=== PATIENT | male | born 1990 | race Caucasian/White ===

== ENCOUNTER 2017-11-22 13:05 | Emergency (ER) | payer BC ==
[2017-11-22 13:25] VITALS: BP 126/67; PULSE 108; RESP 18; TEMP 98.6
[2017-11-22] MEDS ORDERED: ACETAMINOPHEN TAB 500 MG TAB PO STA (14:05)
[2017-11-22] MEDS ORDERED: IBUPROFEN 800 MG TAB PO STA (14:05)
--- NOTE | 2017-11-22 14:56 | XR ---
EXAMINATION TYPE: XR elbow complete RT DATE OF EXAM: 11/22/2017 CLINICAL HISTORY: Pain per order. Redness and swelling after waking up today. TECHNIQUE: Frontal, lateral and oblique images of the right elbow are obtained. COMPARISON: None FINDINGS: There is no acute fracture/dislocation evident in the right elbow. No abnormal fat pad si gns are seen. The overlying soft tissue appears unremarkable. IMPRESSION: Unremarkable study.
[2017-11-22] MEDS ORDERED: predniSONE 20 MG TAB PO STA (15:12)
[2017-11-22] MEDS ORDERED: SULFAMETHOX-TMP 800-160MG 1 EACH TAB PO STA (15:12)
--- NOTE | 2017-11-22 15:12 | ED ---
General Adult HPI - General Chief complaint: Extremity Problem,Nontraumatic Stated complaint: elbow/arm swelling Time Seen by Provider: 11/22/17 13:52 Source: patient, RN notes reviewed, old records reviewed Mode of arrival: ambulatory Limitations: no limitations - History of Present Illness Initial comments: This is a 18-year-old male the ER for evasive severe right arm pain right elbow swelling. Patient woke with the symptoms today. Patient is no medical history takes no medications no history of diabetes or immunocompromise. Patient denies any recent injuries. He states his right elbow just feels painful and swollen. 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 - Related Data Previous Rx's Medication Instructions Recorded Cephalexin [Keflex] 500 mg PO Q6HR #40 cap 11/22/17 Naproxen [Naprosyn] 500 mg PO Q12HR PRN #30 tab 11/22/17 Sulfamethox-Tmp 800-160Mg [Bactrim 2 tab PO BID #40 tab 11/22/17 DS 800-160 mg] Allergies Allergy/AdvReac Type Severity Reaction Status Date / Time Penicillins Allergy Unknown Verified 11/22/17 13:47 Review of Systems ROS Statement: Those systems with pertinent positive or pertinent negative responses have been documented in the HPI. ROS Other: All systems not noted in ROS Statement are negative. Past Medical History Past Medical History: No Reported History Additional Past Medical History / Comment(s): IV DRUG USE History of Any Multi-Drug Resistant Organisms: None Reported Past Surgical History: No Surgical Hx Reported Past Psychological History: No Psychological Hx Reported Smoking Status: Current every day smoker Past Alcohol Use History: Occasional Past Drug Use History: None Reported, Heroin General Exam - General Exam Comments Initial Comments: Right elbow is significantly swollen, versus swollen and boggy, patient does have full range of motion of elbow both passively and actively Limitations: no limitations General appearance: alert, in no apparent distress Head exam: Present: atraumatic, normocephalic, normal inspection Eye exam: Present: normal appearance, PERRL, EOMI. Absent: scleral icterus, conjunctival injection, periorbital swelling ENT exam: Present: normal exam, mucous membranes moist Neck exam: Present: normal inspection. Absent: tenderness, meningismus, lymphadenopathy Respiratory exam: Present: normal lung sounds bilaterally. Absent: respiratory distress, wheezes, rales, rhonchi, stridor Cardiovascular Exam: Present: regular rate, normal rhythm, normal heart sounds. Absent: systolic murmur, diastolic murmur, rubs, gallop, clicks GI/Abdominal exam: Present: soft, normal bowel sounds. Absent: distended, tenderness, guarding, rebound, rigid Extremities exam: Present: normal inspection, full ROM, normal capillary refill. Absent: tenderness, pedal edema, joint swelling, calf tenderness Back exam: Present: normal inspection Neurological exam: Present: alert, oriented X3, CN II-XII intact Psychiatric exam: Present: normal affect, normal mood Skin exam: Present: warm, dry, intact, normal color. Absent: rash Course Vital Signs 11/22/17 13:22 Temperature 98.6 F Pulse Rate 108 H Respiratory 18 Rate Blood Pressure 126/67 O2 Sat by Pulse 97 Oximetry - Reevaluation(s) Reevaluation #1: Patient encouraged to return to ER if fever develops, Medical Decision Making - Medical Decision Making 18 male the ER for evaluation of likely right elbow bursitis, x-ray negative for fracture, patient to return if symptoms worsen, at this time prescribed antibiotics anti-inflammatories - Radiology Data Radiology results: report reviewed (X-ray right elbow is negative for acute disease), image reviewed Disposition Clinical Impression: Bursitis of right elbow, Cellulitis Disposition: HOME SELF-CARE Condition: Good Instructions: Cellulitis (ED), Elbow Bursitis (ED) Prescriptions: Cephalexin [Keflex] 500 mg PO Q6HR #40 cap Naproxen [Naprosyn] 500 mg PO Q12HR PRN #30 tab PRN Reason: Pain Sulfamethox-Tmp 800-160Mg [Bactrim DS 800-160 mg] 2 tab PO BID #40 tab Is patient prescribed a controlled substance at d/c from ED?: No Referrals: None,Stated [Primary Care Provider] - 1-2 days
[2017-11-22] MEDS ORDERED: CEPHALEXIN 500 MG CAP PO STA (15:13)
== END 2017-11-22 15:31 | disposition home or self-care (01) ==
LOC: EC 13:05
DX: M70.31 Other bursitis of elbow, right elbow (principal); L03.113 Cellulitis of right upper limb; F17.200 Nicotine dependence, unspecified, uncomplicated; Z88.0 Allergy status to penicillin
CPT/HCPCS: 73080; 99284; J7512

== ENCOUNTER 2017-12-09 10:43 | Inpatient (IN) | payer BC, OTHER ==
[2017-12-09] MEDS ORDERED: MORPHINE SULFATE 4 MG/ML SYRINGE IV STA (11:21)
[2017-12-09] MEDS ORDERED: SODIUM CHLORIDE 0.9% 500 ML IV STA (11:21)
[2017-12-09] MEDS ORDERED: PANTOPRAZOLE 40 MG/10 ML VIAL IVP STA (11:21)
--- NOTE | 2017-12-09 11:37 | ED ---
General Adult HPI - General Chief complaint: Abdominal Pain Stated complaint: Abd Pain Source: patient, EMS Mode of arrival: EMS - History of Present Illness Initial comments: Dictation was produced using Neteven dictation software. please excuse any grammatical, word or spelling errors. Chief Complaint: 26-year-old male with past medical history of IV drug abuse, recent bursitis surgery on antibiotics presents with epigastric abdominal pain since 3 AM. History of Present Illness: Patient states he was asleep when at approximately 3 AM he was awoken by epigastric abdominal pain. Denies any vomiting however has had episodes of nausea. Patient states the pain is severe he denies any radiation to the back. Denies any diarrhea. No changes in urine characteristics. Patient states the pain is severe and gnawing. No exacerbating or mitigating factors. EMS was called patient was given 100 g of fentanyl and transported to the emergency department. The ROS documented in this emergency department record has been reviewed and confirmed by me. Those systems with pertinent positive or negative responses have been documented in the HPI. All other systems are other negative and/or noncontributory. - Related Data Previous Rx's Medication Instructions Recorded Naproxen [Naprosyn] 500 mg PO Q12HR PRN #30 tab 11/22/17 Allergies Allergy/AdvReac Type Severity Reaction Status Date / Time Penicillins Allergy Unknown Verified 12/09/17 12:19 Review of Systems ROS Statement: Those systems with pertinent positive or pertinent negative responses have been documented in the HPI. ROS Other: All systems not noted in ROS Statement are negative. Past Medical History Past Medical History: No Reported History Additional Past Medical History / Comment(s): IV DRUG USE History of Any Multi-Drug Resistant Organisms: None Reported Past Surgical History: No Surgical Hx Reported Past Psychological History: No Psychological Hx Reported Smoking Status: Current every day smoker Past Alcohol Use History: Occasional Past Drug Use History: Heroin General Exam - General Exam Comments Initial Comments: PHYSICAL EXAM: General Impression: Alert and oriented x3, acute distress secondary to abdominal pain HEENT: Normocephalic atraumatic, extra-ocular movements intact, pupils equal and reactive to light bilaterally, mucous membranes moist. Cardiovascular: Heart regular rate and rhythm, S1&S2 audible, no murmurs, rubs or gallops Chest: Lungs clear to auscultation bilaterally, no rhonchi, no wheeze, no rales Abdomen: Diffuse abdominal tenderness Musculoskeletal: Pulses present and equal in all extremities, no peripheral edema Motor: Power 5/5 bilaterally, no focal deficits noted Neurological: CN II-XII grossly intact, no focal motor or sensory deficits noted Skin: Multiple skin tracks Psych: Normal affect and mood Course Vital Signs 12/09/17 10:45 Temperature 97.9 F Pulse Rate 108 H Respiratory 16 Rate Blood Pressure 128/72 O2 Sat by Pulse 99 Oximetry Medical Decision Making - Medical Decision Making ED course: 26-year-old male presents with severe abdominal pain since 3 AM today. Vital signs upon arrival shows heart rate of 108, rest of vital signs within acceptable limits. Laboratory evaluation obtained would leukocytosis 21.6. Rest of CBC within acceptable limits. Metabolic panel shows lipase of 741. Mild hyperglycemia 112. Urinalysis is negative. Rapid urine drug screen positive for barbiturates. Chest x-ray obtained showing no thoracic findings however there is no pneumoperitoneum. Discussed patient case with Dr. Jhaveri from general surgery. Request the patient be started on antibiotics. She had multiple doses of IV analgesics. Patient to be boarded for surgery or exploratory laparotomy EKG Interpretation: A 12 lead EKG was obtained. It was interpreted by myself and attending physician. There is a P wave before every QRS complex. Rate is [default value]. Rhythm is [default value]. QT is not prolonged. No ST segment depression or elevation. This EKG was compared to a previous EKG that was obtained on [ default value] and showed no significant change. Overall, this EKG is unremarkable - Lab Data Result diagrams: 12/09/17 11:45 12/09/17 11:45 Lab Results 12/09/17 12/09/17 12/09/17 Range/Units 11:45 11:45 11:45 WBC 21.6 H (3.8-10.6) k/uL RBC 4.05 L (4.30-5.90) m/uL Hgb 13.3 (13.0-17.5) gm/dL Hct 40.7 (39.0-53.0) % MCV 100.4 H (80.0-100.0) fL MCH 32.8 (25.0-35.0) pg MCHC 32.7 (31.0-37.0) g/dL RDW 13.2 (11.5-15.5) % Plt Count 625 H (150-450) k/uL Neutrophils % 95 % Lymphocytes % 1 % Monocytes % 3 % Eosinophils % 1 % Basophils % 0 % Neutrophils # 20.5 H (1.3-7.7) k/uL Lymphocytes # 0.3 L (1.0-4.8) k/uL Monocytes # 0.7 (0-1.0) k/uL Eosinophils # 0.1 (0-0.7) k/uL Basophils # 0.0 (0-0.2) k/uL PT 10.5 (9.0-12.0) sec INR 1.1 (<1.2) Sodium 138 (137-145) mmol/L Potassium 4.5 (3.5-5.1) mmol/L Chloride 104 (98-107) mmol/L Carbon Dioxide 20 L (22-30) mmol/L Anion Gap 14 mmol/L BUN 7 L (9-20) mg/dL Creatinine 0.65 L (0.66-1.25) mg/dL Est GFR (CKD-EPI)AfAm >90 (>60 ml/min/1.73 sqM) Est GFR (CKD-EPI)NonAf >90 (>60 ml/min/1.73 sqM) Glucose 112 H (74-99) mg/dL Calcium 8.8 (8.4-10.2) mg/dL Total Bilirubin 1.1 (0.2-1.3) mg/dL AST 58 (17-59) U/L ALT 54 (21-72) U/L Alkaline Phosphatase 88 (38-126) U/L Total Protein 6.4 (6.3-8.2) g/dL Albumin 3.7 (3.5-5.0) g/dL Amylase 132 H (30-110) U/L Lipase 741 H (23-300) U/L Urine Color Urine Appearance (Clear) Urine pH (5.0-8.0) Ur Specific [place] (1.001-1.035) Urine Protein (Negative) Urine Glucose (UA) (Negative) Urine Ketones (Negative) Urine Blood (Negative) Urine Nitrite (Negative) Urine Bilirubin (Negative) Urine Urobilinogen (<2.0) mg/dL Ur Leukocyte Esterase (Negative) Urine RBC (0-5) /hpf Urine WBC (0-5) /hpf Ur Squamous Epith Cells (0-4) /hpf Urine Bacteria (None) /hpf Hyaline Casts (0-2) /lpf Urine Mucus (None) /hpf Urine Opiates Screen (NotDetected) Ur Oxycodone Screen (NotDetected) Urine Methadone Screen (NotDetected) Ur Propoxyphene Screen (NotDetected) Ur Barbiturates Screen (NotDetected) U Tricyclic Antidepress (NotDetected) Ur Phencyclidine Scrn (NotDetected) Ur Amphetamines Screen (NotDetected) U Methamphetamines Scrn (NotDetected) U Benzodiazepines Scrn (NotDetected) Urine Cocaine Screen (NotDetected) U Marijuana (THC) Screen (NotDetected) Serum Alcohol 148 mg/dL 12/09/17 12/09/17 Range/Units 11:45 11:54 WBC (3.8-10.6) k/uL RBC (4.30-5.90) m/uL Hgb (13.0-17.5) gm/dL Hct (39.0-53.0) % MCV (80.0-100.0) fL MCH (25.0-35.0) pg MCHC (31.0-37.0) g/dL RDW (11.5-15.5) % Plt Count (150-450) k/uL Neutrophils % % Lymphocytes % % Monocytes % % Eosinophils % % Basophils % % Neutrophils # (1.3-7.7) k/uL Lymphocytes # (1.0-4.8) k/uL Monocytes # (0-1.0) k/uL Eosinophils # (0-0.7) k/uL Basophils # (0-0.2) k/uL PT (9.0-12.0) sec INR (<1.2) Sodium (137-145) mmol/L Potassium (3.5-5.1) mmol/L Chloride (98-107) mmol/L Carbon Dioxide (22-30) mmol/L Anion Gap mmol/L BUN (9-20) mg/dL Creatinine (0.66-1.25) mg/dL Est GFR (CKD-EPI)AfAm (>60 ml/min/1.73 sqM) Est GFR (CKD-EPI)NonAf (>60 ml/min/1.73 sqM) Glucose (74-99) mg/dL Calcium (8.4-10.2) mg/dL Total Bilirubin (0.2-1.3) mg/dL AST (17-59) U/L ALT (21-72) U/L Alkaline Phosphatase (38-126) U/L Total Protein (6.3-8.2) g/dL Albumin (3.5-5.0) g/dL Amylase (30-110) U/L Lipase (23-300) U/L Urine Color [place] Urine Appearance Cloudy (Clear) Urine pH 8.5 H (5.0-8.0) Ur Specific [place] 1.024 (1.001-1.035) Urine Protein 3+ H (Negative) Urine Glucose (UA) Negative (Negative) Urine Ketones Trace H (Negative) Urine Blood Negative (Negative) Urine Nitrite Negative (Negative) Urine Bilirubin Negative (Negative) Urine Urobilinogen 2.0 (<2.0) mg/dL Ur Leukocyte Esterase Negative (Negative) Urine RBC 1 (0-5) /hpf Urine WBC 2 (0-5) /hpf Ur Squamous Epith Cells <1 (0-4) /hpf Urine Bacteria Rare H (None) /hpf Hyaline Casts 3 H (0-2) /lpf Urine Mucus Many H (None) /hpf Urine Opiates Screen Not Detected (NotDetected) Ur Oxycodone Screen Not Detected (NotDetected) Urine Methadone Screen Not Detected (NotDetected) Ur Propoxyphene Screen Not Detected (NotDetected) Ur Barbiturates Screen Detected H (NotDetected) U Tricyclic Antidepress Not Detected (NotDetected) Ur Phencyclidine Scrn Not Detected (NotDetected) Ur Amphetamines Screen Not Detected (NotDetected) U Methamphetamines Scrn Not Detected (NotDetected) U Benzodiazepines Scrn Not Detected (NotDetected) Urine Cocaine Screen Not Detected (NotDetected) U Marijuana (THC) Screen Not Detected (NotDetected) Serum Alcohol mg/dL Disposition Clinical Impression: Pneumoperitoneum Disposition: ADMITTED IP TO THIS HOSP Condition: Fair Referrals: Cristofer Brush MD [Primary Care Provider] - 1-2 days Time of Disposition: 13:13
--- NOTE | 2017-12-09 12:20 | XR ---
EXAMINATION TYPE: XR chest 1V DATE OF EXAM: 12/09/2017 COMPARISON: NONE HISTORY: Severe abdominal pain TECHNIQUE: Single frontal view of the chest is obtained. FINDINGS: There is no focal air space opacity, pleural effusion, or pneumothorax seen. The cardiac silhouette size is within normal limits. The osseous structures are intact. Pneumoperitoneum is not ed IMPRESSION: No acute cardiopulmonary process however there is pneumoperitoneum. Findings were commun icated with the ordering ER physician by Dr. Lang at 12:16 PM on 12/09/2017.
[2017-12-09 12:35] LABS: Appearance,Urine Cloudy (Clear); Bacteria,Urine Rare /hpf; Bilirubin,Urine Negative (Negative); Blood,Urine Negative (Negative); Color,Urine Light Orange; Glucose,Urine (UA) Negative (Negative); Hyaline Casts,Urine 3 /lpf (0-2); INR 1.1 (<1.2); Ketones,Urine Trace (Negative); Leukocyte Esterase,Urine Negative (Negative); Mucus,Urine Many /hpf; Nitrite,Urine Negative (Negative); PH, Urine 8.5 (5.0-8.0); Protein,Urine 3+ (Negative); Prothrombin Time 10.5 sec (9.0-12.0); RBC,Urine 1 /hpf (0-5); Specific Gravity,Urine 1.024 (1.001-1.035); Squamous Epithelial Cell,Urine <1 /hpf (0-4); WBC,Urine 2 /hpf (0-5)
[2017-12-09 12:37] LABS: ALT 54 U/L (21-72); AST 58 U/L (17-59); Albumin 3.7 g/dL (3.5-5.0); Alkaline Phosphatase 88 U/L (38-126); Amylase 132 U/L (30-110); Anion Gap 14 mmol/L; Blood Urea Nitrogen 7 mg/dL (9-20); Calcium 8.8 mg/dL (8.4-10.2); Carbon Dioxide 20 mmol/L (22-30); Chloride 104 mmol/L (98-107); Glucose 112 mg/dL (74-99); Lipase 741 U/L (23-300); Potassium 4.5 mmol/L (3.5-5.1); Sodium 138 mmol/L (137-145); Total Bilirubin 1.1 mg/dL (0.2-1.3); Total Protein 6.4 g/dL (6.3-8.2)
[2017-12-09 12:38] LABS: Basophils % (A) 0 %; Eosinophils # (A) 0.1 k/uL (0-0.7); Eosinophils % (A) 1 %; HCT 40.7 % (39.0-53.0); HGB 13.3 gm/dL (13.0-17.5); Lymphocytes # (A) 0.3 k/uL (1.0-4.8); Lymphocytes % (A) 1 %; MCH 32.8 pg (25.0-35.0); MCHC 32.7 g/dL (31.0-37.0); MCV 100.4 fL (80.0-100.0); Mean Platelet Volume 6.2; Monocytes # (A) 0.7 k/uL (0-1.0); Monocytes % (A) 3 %; Neutrophils # (A) 20.5 k/uL (1.3-7.7); Neutrophils % (A) 95 %; Platelet Count 625 k/uL (150-450); RBC 4.05 m/uL (4.30-5.90); RDW 13.2 % (11.5-15.5); WBC 21.6 k/uL (3.8-10.6)
[2017-12-09 12:40] LABS: Alcohol 148 mg/dL
[2017-12-09 12:47] LABS: Amphetamine Screen,Urine Not Detected (NotDetected); Barbiturate Screen,Urine Detected (NotDetected); Benzodiazepines Screen,Urine Not Detected (NotDetected); Cocaine Screen,Urine Not Detected (NotDetected); Methadone Screen, Urine Not Detected (NotDetected); Opiate Screen,Urine Not Detected (NotDetected); Oxycodone Screen, Urine Not Detected (NotDetected); Phencyclidine Screen,Urine Not Detected (NotDetected); Tricyclic Antidepressant,Urine Not Detected (NotDetected); Urn Cannabinoid Scrn Not Detected (NotDetected)
[2017-12-09] MEDS ORDERED: metroNIDAZOLE-NS PMX 500 MG in SALINE 1 100ML.BAG IVPB STA (12:49)
[2017-12-09] MEDS ORDERED: cefTRIAXone IN SWFI 1,000 MG/10 ML SYRINGE IVP STA (12:50)
[2017-12-09] MEDS ORDERED: NALOXONE 0.4 MG/ML 1 ML VIAL IV PRN ×2 (13:08→17:50)
[2017-12-09] MEDS ORDERED: HYDROmorphone 1 MG/ML 1 ML SYRINGE IVP STA (13:10)
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
[2017-12-09 14:57] VITALS: BMI 21.2
[2017-12-09] MEDS ORDERED: LACTATED RINGERS 1,000 ML IV ONE ×2 (15:27→18:58)
--- NOTE | 2017-12-09 15:32 | P.GSHP ---
History of Present Illness H&P Date: 12/09/17 Chief Complaint: Pneumoperitoneum 18-year-old male presents to the hospital today complaining of mid to upper abdominal pain since 3 AM. Pain comes in waves. Some nausea but no vomiting. Pain is gradually increasing. White blood cell count elevated at 20. CAT scan shows pneumoperitoneum. Some thickening of the duodenum appreciated. Patient had elbow surgery for infected bursitis approximately 3 weeks ago. He has been taking heavier doses of NSAIDs than usual. He states he does take NSAIDs every day or so because of the type of work he does. Prior to the elbow surgery he had a few episodes of coffee-ground emesis. No antiacids. No history of known ulcer disease. No bowel related complaints. Denies rectal bleeding. Patient' s alcohol level was elevated as well. - Review of Systems Comment: The patient denies any acute changes in vision or hearing, no dysphagia or odynophagia, no chest pain or shortness of breath, no dysuria or hematuria, no headache, no runny nose, no rectal bleeding or melena, no unexplained weight loss Past Medical History Past Medical History: No Reported History Additional Past Medical History / Comment(s): Recent R elbow bursitis with surgery/antibiotics, past IV heroin abuse but none for 3.5 years. History of Any Multi-Drug Resistant Organisms: None Reported Past Surgical History: No Surgical Hx Reported Additional Past Surgical History / Comment(s): R elbow surgery for bursitis at [facility] 2 weeks ago, deviated septum with surgery. Past Anesthesia/Blood Transfusion Reactions: No Reported Reaction Past Psychological History: No Psychological Hx Reported Additional Psychological History / Comment(s): Pt resides with his girlfriend and their 9 month old son. Pt is independent. 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 Smoking Status: Current every day smoker Past Alcohol Use History: Occasional Additional Past Alcohol Use History / Comment(s): Pt started smoking in 2000 and is a half a pack a day smoker. Past Drug Use History: Heroin Additional Drug Use History / Comment(s): Pt used IV heroin in past but none for 3.5 years. - Past Family History Father Family Medical History: No Reported History Mother Family Medical History: No Reported History Medications and Allergies Home Medications Medication Instructions Recorded Confirmed Type Naproxen [Naprosyn] 500 mg PO Q12HR PRN #30 tab 11/22/17 12/09/17 Rx Allergies Allergy/AdvReac Type Severity Reaction Status Date / Time Penicillins Allergy Unknown Verified 12/09/17 12:19 Surgical - Exam Vital Signs Temp Pulse Resp BP Pulse Ox 97.9 F 108 H 16 128/72 99 12/09/17 10:45 12/09/17 10:45 12/09/17 10:45 12/09/17 10:45 12/09/17 10:45 Physical exam: General: Thin young male in obvious distress related to his abdominal complaints HEENT: Normocephalic, sclerae nonicteric Abdomen: Nondistended, rigid abdomen, diffusely tender Extremities: No edema Neuro: Alert and oriented Results - Labs 12/09/17 11:45 12/09/17 11:45 Abnormal Lab Results - Last 24 Hours (Table) 12/09/17 12/09/17 12/09/17 Range/Units 11:45 11:45 11:45 WBC 21.6 H (3.8-10.6) k/uL RBC 4.05 L (4.30-5.90) m/uL MCV 100.4 H (80.0-100.0) fL Plt Count 625 H (150-450) k/uL Neutrophils # 20.5 H (1.3-7.7) k/uL Lymphocytes # 0.3 L (1.0-4.8) k/uL Carbon Dioxide 20 L (22-30) mmol/L BUN 7 L (9-20) mg/dL Creatinine 0.65 L (0.66-1.25) mg/dL Glucose 112 H (74-99) mg/dL Amylase 132 H (30-110) U/L Lipase 741 H (23-300) U/L Urine pH 8.5 H (5.0-8.0) Urine Protein 3+ H (Negative) Urine Ketones Trace H (Negative) Urine Bacteria Rare H (None) /hpf Hyaline Casts 3 H (0-2) /lpf Urine Mucus Many H (None) /hpf Ur Barbiturates Screen (NotDetected) 12/09/17 Range/Units 11:54 WBC (3.8-10.6) k/uL RBC (4.30-5.90) m/uL MCV (80.0-100.0) fL Plt Count (150-450) k/uL Neutrophils # (1.3-7.7) k/uL Lymphocytes # (1.0-4.8) k/uL Carbon Dioxide (22-30) mmol/L BUN (9-20) mg/dL Creatinine (0.66-1.25) mg/dL Glucose (74-99) mg/dL Amylase (30-110) U/L Lipase (23-300) U/L Urine pH (5.0-8.0) Urine Protein (Negative) Urine Ketones (Negative) Urine Bacteria (None) /hpf Hyaline Casts (0-2) /lpf Urine Mucus (None) /hpf Ur Barbiturates Screen Detected H (NotDetected) Diabetes panel 12/09/17 Range/Units 11:45 Sodium 138 (137-145) mmol/L Potassium 4.5 (3.5-5.1) mmol/L Chloride 104 (98-107) mmol/L Carbon Dioxide 20 L (22-30) mmol/L BUN 7 L (9-20) mg/dL Creatinine 0.65 L (0.66-1.25) mg/dL Glucose 112 H (74-99) mg/dL Calcium 8.8 (8.4-10.2) mg/dL AST 58 (17-59) U/L ALT 54 (21-72) U/L Alkaline Phosphatase 88 (38-126) U/L Total Protein 6.4 (6.3-8.2) g/dL Albumin 3.7 (3.5-5.0) g/dL Calcium panel 12/09/17 Range/Units 11:45 Calcium 8.8 (8.4-10.2) mg/dL Albumin 3.7 (3.5-5.0) g/dL Pituitary panel 12/09/17 Range/Units 11:45 Sodium 138 (137-145) mmol/L Potassium 4.5 (3.5-5.1) mmol/L Chloride 104 (98-107) mmol/L Carbon Dioxide 20 L (22-30) mmol/L BUN 7 L (9-20) mg/dL Creatinine 0.65 L (0.66-1.25) mg/dL Glucose 112 H (74-99) mg/dL Calcium 8.8 (8.4-10.2) mg/dL Adrenal panel 12/09/17 Range/Units 11:45 Sodium 138 (137-145) mmol/L Potassium 4.5 (3.5-5.1) mmol/L Chloride 104 (98-107) mmol/L Carbon Dioxide 20 L (22-30) mmol/L BUN 7 L (9-20) mg/dL Creatinine 0.65 L (0.66-1.25) mg/dL Glucose 112 H (74-99) mg/dL Calcium 8.8 (8.4-10.2) mg/dL Total Bilirubin 1.1 (0.2-1.3) mg/dL AST 58 (17-59) U/L ALT 54 (21-72) U/L Alkaline Phosphatase 88 (38-126) U/L Total Protein 6.4 (6.3-8.2) g/dL Albumin 3.7 (3.5-5.0) g/dL Assessment and Plan (1) Pneumoperitoneum Narrative/Plan: Clinical scenario discussed with the patient and his mother at the bedside. The patient's mother is known to us from her physician at [facility]. Suspect probable perforated ulcer at the etiology. Other etiologies including perforated small bowel and colon were reviewed as well. We'll proceed with exploratory laparotomy with repair of the perforated site. We discussed that this could include bowel resection and/or ostomy. Risks of bleeding, infection , hernia, re-current perforation, abscess, respiratory complications, potential need for reoperation reviewed. They understand and wish to proceed. Current Visit: Yes Status: Acute Code(s): K66.8 - OTHER SPECIFIED DISORDERS OF PERITONEUM SNOMED Code(s): 63525000
[2017-12-09] MEDS ORDERED: DEXAMETHASONE SOD PHOS (MDV) 100 MG/10 ML VIAL IV ONE (15:40)
[2017-12-09] MEDS ORDERED: ONDANSETRON 4 MG/2 ML VIAL IVP ONE (15:41)
[2017-12-09] MEDS ORDERED: GLYCOPYRROLATE 0.2 MG/ML 2 ML VIAL ONE (15:49)
[2017-12-09] MEDS ORDERED: NEOSTIGMINE 1 MG/ML 10 ML VIAL ONE (15:49)
[2017-12-09] MEDS ORDERED: PROPOFOL 10 MG/ML 20 ML VIAL IV ONE (15:49)
[2017-12-09] MEDS ORDERED: SUCCINYLCHOLINE CHLORIDE 100 MG/5 ML SYR IV ONE (15:49)
[2017-12-09] MEDS ORDERED: KETOROLAC 30 MG/ML 1 ML VIAL ONE (15:49)
[2017-12-09] MEDS ORDERED: MIDAZOLAM 2 MG/2 ML VIAL ONE (15:49)
[2017-12-09] MEDS ORDERED: ROCURONIUM BROMIDE 10 MG/ML 10 ML VIAL IV ONE (15:49)
[2017-12-09] MEDS ORDERED: LIDOCAINE 1% INJ 10MG/ML (20 ML MDV) ONE (15:49)
[2017-12-09] MEDS ORDERED: fentaNYL (PF) 50 MCG/ML 2 ML AMP ONE (15:49)
[2017-12-09] MEDS: HYDROmorphone 1 MG/ML 1 ML SYRINGE IVP ONE ×4 (17:45→18:28)
[2017-12-09] MEDS ORDERED: ACETAMINOPHEN IV (For NPO) 1,000 MG in EMPTY BAG 1 BAG IVPB ONE (17:50)
[2017-12-09] MEDS ORDERED: ONDANSETRON 4 MG/2 ML VIAL IVP PRN (17:50)
--- NOTE | 2017-12-09 17:59 | P.OP ---
Date of Procedure: 12/09/17 Procedure(s) Performed: PREOPERATIVE DIAGNOSIS: Pneumoperitoneum POSTOPERATIVE DIAGNOSIS: Perforated duodenal ulcer with peritonitis PROCEDURE: Exploratory laparotomy with primary repair perforated duodenal ulcer with Shankar patch and fibrin glue SURGEON: Shakila EBL: Minimal ANESTHESIA: General COMPLICATIONS: None OPERATIVE PROCEDURE: Patient brought in place and the operating table in the supine position. Patient placed under general anesthesia. Reich catheter and nasogastric tubes were placed. Abdomen was prepped and draped in the usual sterile fashion. An upper midline incision was made using a scalpel. Dissection through the subcutaneous fat and fascia took place using electrocautery. There was a large volume of bilious stained purulent fluid in the abdominal cavity was irrigated and evacuated. Inspection of the stomach was normal. Inspection of the duodenal bulb however revealed a 1-1.5 cm oval- shaped ulceration. The edges of the ulcer itself were viable and nonfriable. The ulcer was closed using interrupted 3-0 GI silk sutures. Once we had adequate closure copious irrigation of the abdominal cavity with a proximally 7 L of saline took place. No further purulence was seen at that time. I then took a portion of omentum and sutured this over the ulcer itself. Between the omentum and the ulcer closure I used Tisseel fibrin glue which was also used on top of the omentum. Following that the nasogastric tube was confirmed to be within the body of the stomach. The fascia was reapproximated using a running double-stranded #1 PDS suture. The skin was closed using toni. 3 separate small wound openings were left for Telfa petra. Sterile dressings and abdominal binder was applied. DISPOSITION: Stable to recovery room
[2017-12-09] MEDS ORDERED: LEVOFLOXACIN 500MG-D5W PMX 500 MG in DEXTROSE/WATER 1 100ML.BAG IVPB SCH (18:00)
[2017-12-09] MEDS: KETOROLAC 30 MG/ML 1 ML VIAL IVP SCH (19:56)
[2017-12-09] MEDS: D5-0.45% NACL WITH KCL 20MEQ/L 1,000 ML IV SCH (19:57)
[2017-12-09] MEDS: HYDROmorphone 1 MG/ML 1 ML SYRINGE IVP PRN (21:24)
[2017-12-09] MEDS: PANTOPRAZOLE 40 MG/10 ML VIAL IVP SCH (22:06)
[2017-12-10] MEDS: HYDROmorphone 1 MG/ML 1 ML SYRINGE IVP PRN ×7 (00:16→19:48)
[2017-12-10] MEDS: HEPARIN SODIUM,PORCINE 5,000 UNIT/ML 1 ML VIAL SQ SCH ×4 (00:16→23:59)
[2017-12-10] MEDS: KETOROLAC 30 MG/ML 1 ML VIAL IVP SCH ×5 (00:17→23:59)
[2017-12-10] MEDS: D5-0.45% NACL WITH KCL 20MEQ/L 1,000 ML IV SCH ×4 (04:49→23:59)
[2017-12-10 07:32] LABS: Basophils % (A) 0 %; Eosinophils # (A) 0.1 k/uL (0-0.7); Eosinophils % (A) 1 %; HCT 34.6 % (39.0-53.0); HGB 11.5 gm/dL (13.0-17.5); Lymphocytes # (A) 0.6 k/uL (1.0-4.8); Lymphocytes % (A) 5 %; MCHC 33.3 g/dL (31.0-37.0); Macrocytosis Slight; Mean Platelet Volume 6.7; Monocytes # (A) 0.2 k/uL (0-1.0); Monocytes % (A) 2 %; Neutrophils # (A) 12.4 k/uL (1.3-7.7); Neutrophils % (A) 92 %; Platelet Count 500 k/uL (150-450); WBC 13.4 k/uL (3.8-10.6)
[2017-12-10 07:44] LABS: Anion Gap 7 mmol/L; Blood Urea Nitrogen 11 mg/dL (9-20); Calcium 8.6 mg/dL (8.4-10.2); Carbon Dioxide 26 mmol/L (22-30); Chloride 101 mmol/L (98-107); Glucose 128 mg/dL (74-99); Potassium 4.4 mmol/L (3.5-5.1); Sodium 134 mmol/L (137-145)
[2017-12-10] MEDS: NICOTINE 14MG/24HR PATCH TRANSDERM SCH (08:54)
[2017-12-10] MEDS: PANTOPRAZOLE 40 MG/10 ML VIAL IVP SCH ×2 (08:55→20:10)
[2017-12-10] MEDS ORDERED: SODIUM CHLORIDE 0.9% 1,000 ML IV ONE (10:28)
--- NOTE | 2017-12-10 10:53 | P.PN ---
<Namita Lopezne M - Last Filed: 12/10/17 10:30> Subjective Progress Note Date: 12/10/17 26-year-old male being seen on rounds this morning sitting up in bed pleasant alert oriented 3 states pain medication effective for pain control nasal gastric tube to suction surgical dressing dry few hypoactive bowel tones surgical tenderness appropriate and not distended patient states belching no stool white count down 13. 4 indwelling Reich catheter in place dark ruchi urine patient states he has not been up out of bed this morning Postop December 09 Exploratory laparotomy with primary repair perforated duodenal ulcer with Shankar patch and fibrin glue. For perforated duodenal ulcer with peritonitis Objective - Vital Signs Vital signs: Vital Signs Temp 97.9 F 12/10/17 07:53 Pulse 69 12/10/17 07:53 Resp 16 12/10/17 07:53 BP 108/63 12/10/17 07:53 Pulse Ox 95 12/10/17 07:53 Intake & Output 12/09/17 12/10/17 12/10/17 18:59 06:59 18:59 Intake Total 1300 1100 Output Total 350 1110 Balance 950 -10 Weight 77.111 kg 77.111 kg Intake: IV 1300 Intake, IV Titration 1100 Amount D5-0.45% NaCl with KCl 1000 20Meq/l 1,000 ml @ 125 mls/hr IV .Q8H [facility] Rx#: [id number] Levofloxacin 500Mg-D5w 100 Pmx 500 mg In Dextrose/ Water 1 100ml.bag @ 100 mls/hr IVPB Q24H [facility] Rx#: [id number] Output: Gastric Drainage 250 Urine 300 860 Estimated Blood Loss 50 Other: Voiding Method Indwelling Catheter Indwelling Catheter # Voids 1 - Exam Physical exam Pleasant 26-year-old sitting up in bed oriented 3 states pain medication effective for pain control Lungs diminished at the bases otherwise adequate air movement on room air no shortness of breath no cough noted on room air sats are 95% Heart S1-S2 audible regular Abdomen surgical tenderness appropriate few hypoactive bowel tones not distended indwelling Reich catheter in place nasogastric tube to suction surgical dressing dry no reports of nausea no vomiting Extremities 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0-8.0) Urine Protein 3+ H (Negative) Urine Ketones Trace H (Negative) Urine Bacteria Rare H (None) /hpf Hyaline Casts 3 H (0-2) /lpf Urine Mucus Many H (None) /hpf Ur Barbiturates Screen (NotDetected) 12/09/17 12/10/17 12/10/17 Range/Units 11:54 06:56 06:56 WBC 13.4 H (3.8-10.6) k/uL RBC 3.40 L (4.30-5.90) m/uL Hgb 11.5 L (13.0-17.5) gm/dL Hct 34.6 L (39.0-53.0) % MCV 102.0 H (80.0-100.0) fL Plt Count 500 H (150-450) k/uL Neutrophils # 12.4 H (1.3-7.7) k/uL Lymphocytes # 0.6 L (1.0-4.8) k/uL Sodium 134 L (137-145) mmol/L Carbon Dioxide (22-30) mmol/L BUN (9-20) mg/dL Creatinine 0.59 L (0.66-1.25) mg/dL Glucose 128 H (74-99) mg/dL Amylase (30-110) U/L Lipase (23-300) U/L Urine pH (5.0-8.0) Urine Protein (Negative) Urine Ketones (Negative) Urine Bacteria (None) /hpf Hyaline Casts (0-2) /lpf Urine Mucus (None) /hpf Ur Barbiturates Screen Detected H (NotDetected) Microbiology - Last 24 Hours (Table) 12/09/17 12:00 Gram Stain - Preliminary Chest Wound Culture - Preliminary 12/09/17 17:00 Anaerobic Culture - Preliminary Peritoneal Fluid Assessment and Plan Assessment: Impression Present on admission acute onset abdominal pain suspect due to Perforated duodenal ulcer with peritonitis Present on admission leukocytosis suspect due to peritonitis History of frequent use of NSAID daily History of a recent right elbow bursitis with surgery on Naprosyn Pneumoperitoneum present on admission Status post December 09 Exploratory laparotomy with primary repair perforated duodenal ulcer with Shankar patch and fibrin glue for perforated duodenal ulcer with peritonitis Active daily use nicotine Plan Continue postop surgical care 1 L fluid bolus as ordered monitor intake and output Pain control IV antibiotic Levaquin as ordered Toradol 30 mg IV every 6 hours monitor response Nicotine patch as ordered reinforce smoking sensation Continue indwelling Reich catheter do not remove unless ordered by surgical surgeon Continue protonic 40 IV twice a day DVT and GI prophylaxis Increase activity as tolerated Defer to medicine to address medical issues Monitor labs The above impression and plan of care have been discussed and directed by signing physician. Saranya Lopez nurse practitioner acting as scribe for signing physician. <Dami Jhaveri - Last Filed: 12/10/17 14:54> Objective - Vital Signs Vital signs: Vital Signs Temp 98.7 F 12/10/17 14:30 Pulse 66 12/10/17 14:30 Resp 16 12/10/17 14:30 BP 110/67 12/10/17 14:30 Pulse Ox 97 12/10/17 14:30 Intake & Output 12/09/17 12/10/17 12/10/17 18:59 06:59 18:59 Intake Total 1300 1100 Output Total 350 1110 Balance 950 -10 Weight 77.111 kg 77.111 kg Intake: IV 1300 Intake, IV Titration 1100 Amount D5-0.45% NaCl with KCl 1000 20Meq/l 1,000 ml @ 125 mls/hr IV .Q8H [facility] Rx#: [id number] Levofloxacin 500Mg-D5w 100 Pmx 500 mg In Dextrose/ Water 1 100ml.bag @ 100 mls/hr IVPB Q24H [facility] Rx#: [id number] Output: Gastric Drainage 250 Urine 300 860 Estimated Blood Loss 50 Other: Voiding Method Indwelling Catheter Indwelling Catheter # Voids 1 - Labs CBC & Chem 7: 12/10/17 06:56 12/10/17 06:56 Labs: Abnormal Lab Results - Last 24 Hours (Table) 12/10/17 12/10/17 Range/Units 06:56 06:56 WBC 13.4 H (3.8-10.6) k/uL RBC 3.40 L (4.30-5.90) m/uL Hgb 11.5 L (13.0-17.5) gm/dL Hct 34.6 L (39.0-53.0) % MCV 102.0 H (80.0-100.0) fL Plt Count 500 H (150-450) k/uL Neutrophils # 12.4 H (1.3-7.7) k/uL Lymphocytes # 0.6 L (1.0-4.8) k/uL Sodium 134 L (137-145) mmol/L Creatinine 0.59 L (0.66-1.25) mg/dL Glucose 128 H (74-99) mg/dL Microbiology - Last 24 Hours (Table) 12/09/17 12:00 Gram Stain - Preliminary Chest Wound Culture - Preliminary 12/09/17 17:00 Anaerobic Culture - Preliminary Peritoneal Fluid Assessment and Plan Assessment: As above. Patient doing better today. He agrees his pain is definitely improved from preop. Despite that he rates his pain as an 8-9 out of 10. White blood cell count 13.4 today. Hemoglobin stable. Is having some itching. Continue analgesics. We will add IV Tylenol and Benadryl. Reevaluate in a.m. Keep nasogastric tube to suction. (1) Pneumoperitoneum Current Visit: Yes Status: Acute Code(s): K66.8 - OTHER SPECIFIED DISORDERS OF PERITONEUM SNOMED Code(s): 01515178
--- NOTE | 2017-12-10 12:28 | P.CONS ---
History of Present Illness - Reason for Consult Consult date: 12/10/17 Medical management - History of Present Illness This is a 26-year-old male patient of Dr. Brush with past medical history of right elbow bursitis with recent admission at [facility] 2 weeks ago for 5 days status post drainage. He believes the bursitis was secondary to using a sledgehammer for 4 hours. He has been taking naproxen 500 mg twice daily. He denies having any heartburn. 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 He denies having any recent street drug use. He does drink alcohol which she states is occasionally but can be up to 15 drinks on the weekend. He is also a tobacco smoker. He states he woke up with abdominal pain that was crippling him and he couldn't get into the car was so severe. He was transported by EMS to [facility] emergency center for evaluation. The pain was severe and radiating to his back. He had no vomiting or nausea. No diarrhea. He was afebrile with a white count of 21.6 and heart rate of 108. His lipase was elevated at 741 and amylase 132. Urine drug screen was positive for barbiturates. Alcohol level was 148. BUN 11 creatinine 0.59, hemoglobin 13.3. Urinalysis negative. Chest x-ray showed no acute findings. CAT scan of the abdomen and pelvis shows probable perforated duodenal ulcer. Free fluid within the pelvis. Dr. Jhaveri performed exploratory laparotomy with primary repair perforated wound ulcer with Shankar patch and fibrin glue. Patient is seen one day postop. He is complaining of significant pain to the abdomen. He has been afebrile, vital signs stable, pulse ox 95% on room air. Reich catheter in place with dark urine return for which she is receiving 1 L of IV fluids. White count is improved today to 13.4. . Review of Systems All systems: negative Constitutional: Denies chills, Denies fever, Denies poor appetite, Denies weight loss Eyes: denies blurred vision, denies pain Ears, nose, mouth and throat: Denies headache, Denies sore throat Cardiovascular: Denies chest pain, Denies shortness of breath Respiratory: Denies cough Gastrointestinal: Reports abdominal pain, Denies diarrhea, Denies nausea, Denies vomiting Genitourinary: Denies dysuria Musculoskeletal: Denies gait dysfunction, Denies myalgias Integumentary: Denies pruritus, Denies rash Neurological: Denies numbness, Denies weakness Psychiatric: Denies anxiety, Denies depression Endocrine: Denies fatigue, Denies weight change Past Medical History Past Medical History: No Reported History Additional Past Medical History / Comment(s): Recent R elbow bursitis with surgery/antibiotics, past IV heroin abuse but none for 3.5 years. History of Any Multi-Drug Resistant Organisms: None Reported Additional Past Surgical History / Comment(s): R elbow surgery for bursitis at [facility] 2 weeks ago, deviated septum with surgery, exploratory laparotomy with primary repair perforated wound ulcer with Shankar patch and fibrin glue. Past Anesthesia/Blood Transfusion Reactions: No Reported Reaction Past Psychological History: No Psychological Hx Reported Additional Psychological History / Comment(s): Pt resides with his girlfriend and their 9 month old son. Pt is independent. 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 He drives. Smoking Status: Current every day smoker Past Alcohol Use History: Occasional Additional Past Alcohol Use History / Comment(s): Pt started smoking in 2000 and is a half a pack a day smoker. Past Drug Use History: Heroin Additional Drug Use History / Comment(s): Pt used IV heroin in past but none for 3.5 years. - Past Family History Father Family Medical History: No Reported History Additional Family Medical History / Comment(s): Father is alive at age 68 with no major medical problems. Mother Family Medical History: No Reported History Additional Family Medical History / Comment(s): Mother is alive in her 60s with no major medical problems. Patient is an only child. Medications and Allergies Home Medications Medication Instructions Recorded Confirmed Type Naproxen [Naprosyn] 500 mg PO Q12HR PRN #30 tab 11/22/17 12/09/17 Rx Allergies Allergy/AdvReac Type Severity Reaction Status Date / Time Penicillins Allergy Unknown Verified 12/09/17 12:19 Physical Exam Vitals: Vital Signs Temp Pulse Pulse Resp BP BP Pulse Ox 12/10/17 07:53 97.9 F 69 16 108/63 95 12/10/17 00:58 17 12/10/17 00:16 98.4 F 77 17 115/70 98 12/09/17 20:55 98.7 F 81 17 118/79 93 L 12/09/17 20:40 79 18 110/69 95 12/09/17 20:25 77 17 117/80 96 12/09/17 20:10 98.3 F 88 18 124/77 95 12/09/17 19:55 92 17 138/72 94 L 12/09/17 19:40 90 18 130/70 95 12/09/17 19:25 88 17 129/75 96 12/09/17 19:10 91 18 128/72 95 12/09/17 18:55 98.6 F 78 17 132/75 97 12/09/17 18:30 82 16 137/65 92 L 12/09/17 18:15 73 16 149/84 99 12/09/17 18:00 75 16 136/70 99 12/09/17 17:45 82 16 142/70 99 12/09/17 17:40 98.6 F 106 H 16 148/82 99 12/09/17 15:27 98.5 F 85 16 166/82 96 12/09/17 15:00 104 H 20 124/84 97 12/09/17 14:22 98.0 F 107 H 124/75 95 12/09/17 10:45 97.9 F 108 H 16 128/72 99 Intake and Output 12/09/17 12/10/17 12/10/17 22:59 06:59 14:59 Intake Total 1525 875 Output Total 640 820 Balance 885 55 Intake: IV 1300 Intake, IV Titration 225 875 Amount D5-0.45% NaCl with KCl 125 875 20Meq/l 1,000 ml @ 125 mls/hr IV .Q8H [facility] Rx#: [id number] Levofloxacin 500Mg-D5w 100 Pmx 500 mg In Dextrose/ Water 1 100ml.bag @ 100 mls/hr IVPB Q24H [facility] Rx#: [id number] Output: Gastric Drainage 50 200 Urine 540 620 Estimated Blood Loss 50 Other: Voiding Method Indwelling Catheter Indwelling Catheter # Voids 1 Gen: This is a 26-year-old male. He is sitting up in bed and appears to be slightly uncomfortable due to pain HEENT: Head is atraumatic, normocephalic. Pupils equal, round. Sclerae is anicteric. NG tube in place. NECK: Supple. No JVD. No lymphadenopathy. No thyromegaly. LUNGS: Clear to auscultation. No wheezes or rhonchi. No intercostal retractions. HEART: Regular rate and rhythm. No murmur. ABDOMEN: Soft. Bowel sounds are hypoactive. No masses. Generalized tenderness. Dressing placed to the midline with no breakthrough bleeding or drainage. Reich catheter draining dark ruchi urine EXTREMITIES: No pedal edema. No calf tenderness. Dorsalis pedis +2 bilaterally. NEUROLOGICAL: Patient is awake, alert and oriented x3. Cranial nerves 2 through 12 are grossly intact. Results CBC & Chem 7: 12/10/17 06:56 12/10/17 06:56 Labs: Abnormal Lab Results - Last 24 Hours (Table) 12/09/17 12/09/17 12/09/17 Range/Units 11:45 11:45 11:45 WBC 21.6 H (3.8-10.6) k/uL RBC 4.05 L (4.30-5.90) m/uL Hgb (13.0-17.5) gm/dL Hct (39.0-53.0) % MCV 100.4 H (80.0-100.0) fL Plt Count 625 H (150-450) k/uL Neutrophils # 20.5 H (1.3-7.7) k/uL Lymphocytes # 0.3 L (1.0-4.8) k/uL Sodium (137-145) mmol/L Carbon Dioxide 20 L (22-30) mmol/L BUN 7 L (9-20) mg/dL Creatinine 0.65 L (0.66-1.25) mg/dL Glucose 112 H (74-99) mg/dL Amylase 132 H (30-110) U/L Lipase 741 H (23-300) U/L Urine pH 8.5 H (5.0-8.0) Urine Protein 3+ H (Negative) Urine Ketones Trace H (Negative) Urine Bacteria Rare H (None) /hpf Hyaline Casts 3 H (0-2) /lpf Urine Mucus Many H (None) /hpf Ur Barbiturates Screen (NotDetected) 12/09/17 12/10/17 12/10/17 Range/Units 11:54 06:56 06:56 WBC 13.4 H (3.8-10.6) k/uL RBC 3.40 L (4.30-5.90) m/uL Hgb 11.5 L (13.0-17.5) gm/dL Hct 34.6 L (39.0-53.0) % MCV 102.0 H (80.0-100.0) fL Plt Count 500 H (150-450) k/uL Neutrophils # 12.4 H (1.3-7.7) k/uL Lymphocytes # 0.6 L (1.0-4.8) k/uL Sodium 134 L (137-145) mmol/L Carbon Dioxide (22-30) mmol/L BUN (9-20) mg/dL Creatinine 0.59 L (0.66-1.25) mg/dL Glucose 128 H (74-99) mg/dL Amylase (30-110) U/L Lipase (23-300) U/L Urine pH (5.0-8.0) Urine Protein (Negative) Urine Ketones (Negative) Urine Bacteria (None) /hpf Hyaline Casts (0-2) /lpf Urine Mucus (None) /hpf Ur Barbiturates Screen Detected H (NotDetected) Microbiology - Last 24 Hours (Table) 12/09/17 12:00 Gram Stain - Preliminary Chest Wound Culture - Preliminary 12/09/17 17:00 Anaerobic Culture - Preliminary Peritoneal Fluid Assessment and Plan Plan: 1. Perforated duodenal ulcer with peritonitis status post repair. Continue Dilaudid and Toradol for pain control, Zofran for nausea. Patient is on IV fluids at 125 mL per hour. 2. Sepsis secondary to perforated ulcer and peritonitis present on admission with leukocytosis and tachycardia. There is a consult in place for Dr. Gunn. Patient is currently on Levaquin and received 1 dose of Flagyl in the ER. 3. Tobacco use and dependence. Continue nicotine patch. 4. Recent surgical intervention for her bursitis of the right elbow, stable. 5. History of heroin use, abstinence for almost 4 years. 6. GI prophylaxis. Protonix. 7. DVT prophylaxis. SCDs and ALVARO hose. Patient will be admitted to the hospital for a minimum of 3 night stay. Discharge plan: Return home Impression and plan of care have been directed as dictated by the signing physician. Genoveva Parker nurse practitioner acting as scribe for signing physician.
[2017-12-10] MEDS: CEFEPIME 2 GM in SODIUM CHLORIDE 0.9% 50 ML IVPB SCH ×2 (14:03→20:10)
[2017-12-10] MEDS: FLUCONAZOLE IN NACL,ISO-OSM 200 MG in SALINE 1 100ML.BAG IVPB SCH (15:53)
[2017-12-10] MEDS: diphenhydrAMINE 50 MG/ML 1 ML VIAL IVP PRN (15:54)
[2017-12-10] MEDS: ACETAMINOPHEN IV (For NPO) 1,000 MG in EMPTY BAG 1 BAG IVPB SCH ×2 (18:21→23:58)
[2017-12-10] MEDS: metroNIDAZOLE-NS PMX 500 MG in SALINE 1 100ML.BAG IVPB SCH ×2 (18:43→23:59)
--- NOTE | 2017-12-10 19:34 | CONS ---
CONSULTATION . REASON FOR CONSULTATION: Perforated bowel and antibiotic recommendation. HISTORY OF PRESENT ILLNESS: The patient is a 26 -year-old male who was recently admitted at the [facility] when the patient did have right elbow olecranon bursitis, status post drainage, culture that was positive for MSSA and for which the patient has finished his oral Keflex therapy. The patient presenting to the [facility] ER yesterday morning with chief complaints of abdominal pain in the epigastric area, sudden onset and woke up around 3 in the morning. The patient's pain described to be burning, almost 10/10, with severity. Did have an episode of nausea but no vomiting. The pain did radiate to the back area. With these symptoms, the patient did present to the hospital by the EMS. The patient was evaluated by the ER physician. The patient did have a CT which would suggest perforated duodenal ulcer with free fluid within the pelvis. I was asked to see the patient for further recommendation regarding antibiotic therapy. The patient subsequently has been taken to the OR. The patient noticed to have a perforated duodenal ulcer with peritonitis. He is status post exploratory laparotomy with primary repair of this perforated ulcer with Shankar patch and fibrin glue. The patient is still having abdominal pain especially positional. Did have the NG in, currently on Levaquin. REVIEW OF SYSTEMS: Constitutional: Positive for weakness, no fever. Eyes: No complaint. ENT no complaint. Respiratory no complaint. Cardiovascular: No complaint. Genitourinary no complaint. GASTROINTESTINAL: As per HPI. Musculoskeletal: No complaint. Integumentary: No complaint. Psychological no complaint. Endocrine no complaint. Neurologic no complaint. PAST MEDICAL HISTORY: Recent right elbow olecranon bursitis, likely MSSA. PAST SURGICAL HISTORY: Right elbow bursectomy. SOCIAL HISTORY: Occasionally drinks. Currently an every day smoker and does admit to IV use. Last time has been about 3-1/2 years ago. FAMILY HISTORY: No pertinent findings noticed. ALLERGIES: TO PENICILLIN has tolerated cephalosporin without any problem. MEDICATIONS: Includes the patient is currently on Levaquin 500 daily, heparin, Dilaudid, Toradol, Narcan, nicotine patch, Zofran and Protonix. EXAMINATION: Blood pressure 108/63 with a pulse of 69, temperature 97.9. He is 95% on room air. General description is a middle aged male up in the chair in no distress. No tachypnea or accessory muscles of respiration use. HEENT: Shows pallor. No scleral icterus. Oral mucosa membranes are dry. No pharyngeal erythema or thrush. Neck trachea central. No thyromegaly. Lungs unlabored breathing. Clear to auscultation anteriorly. No wheeze or crackles. Heart S1, S2. Regular rate and rhythm. ABDOMEN: Soft, mildly tender. No guarding. No rigidity. Extremities: No edema of the feet. Skin examination: No rash or mass palpable. Neurological: Patient awake, alert, oriented times three. Mood and affect normal. LABS: Hemoglobin 11.5, white count 13.4, admission white count 21.6, BUN of 11, creatinine 0.59. UA has been negative. Urine drug screen positive for barbiturates. Abdominal culture currently pending. DIAGNOSTIC IMPRESSION AND PLAN: 1. Patient with secondary peritonitis from a perforated duodenal ulcer status post laparotomy and open repair of the same. The likely organism to cover will be the enteric gram-negative plus-minus Lissett species and less likely anaerobes. The patient who recently did have a right elbow bursitis status post bursectomy. Culture at that time was positive for MSSA and that has completely healed up. 2. The patient does have PENICILLIN ALLERGY that will limit the number of antibiotics that could be safe to use. PLAN: 1. Discontinue Levaquin. 2. Start the patient on cefepime 2 g q12, Flagyl 500 every 8 and Diflucan 200 daily. 3. Depending upon the clinical response as well as cultures, to further adjust medication if needed. Thank you for this consultation. Will follow this patient along with you. MMODL / IJN: [id number] /
[2017-12-11] MEDS: HYDROmorphone 1 MG/ML 1 ML SYRINGE IVP PRN ×8 (00:55→23:51)
[2017-12-11] MEDS: KETOROLAC 30 MG/ML 1 ML VIAL IVP SCH ×2 (06:20→11:54)
[2017-12-11] MEDS: ACETAMINOPHEN IV (For NPO) 1,000 MG in EMPTY BAG 1 BAG IVPB SCH ×2 (06:20→11:53)
[2017-12-11 07:24] LABS: Basophils % (A) 0 %; Eosinophils # (A) 0.1 k/uL (0-0.7); Eosinophils % (A) 1 %; HCT 33.8 % (39.0-53.0); HGB 11.4 gm/dL (13.0-17.5); Lymphocytes # (A) 1.2 k/uL (1.0-4.8); Lymphocytes % (A) 16 %; MCH 33.9 pg (25.0-35.0); MCHC 33.7 g/dL (31.0-37.0); MCV 100.5 fL (80.0-100.0); Mean Platelet Volume 7.3; Monocytes # (A) 0.3 k/uL (0-1.0); Monocytes % (A) 4 %; Neutrophils # (A) 5.8 k/uL (1.3-7.7); Neutrophils % (A) 78 %; Platelet Count 438 k/uL (150-450); RBC 3.36 m/uL (4.30-5.90); RDW 12.6 % (11.5-15.5); WBC 7.5 k/uL (3.8-10.6)
[2017-12-11 07:40] LABS: Anion Gap 6 mmol/L; Blood Urea Nitrogen 8 mg/dL (9-20); Calcium 8.6 mg/dL (8.4-10.2); Carbon Dioxide 29 mmol/L (22-30); Chloride 100 mmol/L (98-107); Glucose 89 mg/dL (74-99); Potassium 3.7 mmol/L (3.5-5.1); Sodium 135 mmol/L (137-145)
[2017-12-11] MEDS: NICOTINE 14MG/24HR PATCH TRANSDERM SCH (07:51)
[2017-12-11] MEDS: metroNIDAZOLE-NS PMX 500 MG in SALINE 1 100ML.BAG IVPB SCH ×3 (07:51→23:51)
[2017-12-11] MEDS: HEPARIN SODIUM,PORCINE 5,000 UNIT/ML 1 ML VIAL SQ SCH ×3 (07:51→23:51)
[2017-12-11] MEDS: PANTOPRAZOLE 40 MG/10 ML VIAL IVP SCH ×2 (07:52→20:35)
[2017-12-11] MEDS: CEFEPIME 2 GM in SODIUM CHLORIDE 0.9% 50 ML IVPB SCH ×2 (08:59→20:35)
[2017-12-11] MEDS: BENZOCAINE SPRAY 1 CAN MUCOUS MEM PRN ×3 (09:49→21:33)
[2017-12-11] MEDS: FLUCONAZOLE IN NACL,ISO-OSM 200 MG in SALINE 1 100ML.BAG IVPB SCH (09:51)
--- NOTE | 2017-12-11 10:37 | P.PN ---
Subjective Progress Note Date: 12/11/17 Principal diagnosis: Perforated duodenal ulcer Patient doing better today. He says his pain is improved. White blood cell count is normal. He is afebrile with stable vital signs. Nasogastric tube is bilious. Objective - Vital Signs Vital signs: Vital Signs Temp 98.9 F 12/11/17 07:35 Pulse 71 12/11/17 07:35 Resp 18 12/11/17 07:35 BP 113/72 12/11/17 07:35 Pulse Ox 96 12/11/17 07:35 Intake & Output 12/10/17 12/11/17 12/11/17 18:59 06:59 18:59 Output Total 900 1520 1200 Balance -900 -1520 -1200 Weight 77.111 kg Output: Gastric Drainage 500 Urine 400 1520 1200 Uretheral (Reich) 400 Other: Voiding Method Indwelling Catheter Urinal # Voids 0 1 2 - Exam Abdomen: Soft, nondistended, incision clean with some drainage wick sites. - Labs CBC & Chem 7: 12/11/17 06:16 12/11/17 06:16 Labs: Abnormal Lab Results - Last 24 Hours (Table) 12/11/17 12/11/17 Range/Units 06:16 06:16 RBC 3.36 L (4.30-5.90) m/uL Hgb 11.4 L (13.0-17.5) gm/dL Hct 33.8 L (39.0-53.0) % MCV 100.5 H (80.0-100.0) fL Sodium 135 L (137-145) mmol/L BUN 8 L (9-20) mg/dL Microbiology - Last 24 Hours (Table) 12/09/17 12:00 Gram Stain - Preliminary Chest Wound Culture - Preliminary Lissett albicans 12/09/17 13:15 Blood Culture - Preliminary Blood No Growth after 24 hours Assessment and Plan (1) Pneumoperitoneum Narrative/Plan: Continue IV antibiotics. Can begin local wound care at wick sites. Keep nasogastric tube to suction. Current Visit: Yes Status: Acute Code(s): K66.8 - OTHER SPECIFIED DISORDERS OF PERITONEUM SNOMED Code(s): 91432000
[2017-12-11] MEDS: BENZOCAINE/MENTHOL LOZENG 1 EACH LOZENGE MUCOUS MEM PRN ×5 (11:02→23:52)
[2017-12-11] MEDS: D5-0.45% NACL WITH KCL 20MEQ/L 1,000 ML IV SCH ×2 (11:02→20:35)
[2017-12-11] MEDS: diphenhydrAMINE 50 MG/ML 1 ML VIAL IVP PRN (14:24)
--- NOTE | 2017-12-11 16:36 | P.PN ---
Subjective Progress Note Date: 12/11/17 This is a 26-year-old male patient of Dr. Brush with past medical history of right elbow bursitis with recent admission at [facility] 2 weeks ago for 5 days status post drainage. He believes the bursitis was secondary to using a sledgehammer for 4 hours. He has been taking naproxen 500 mg twice daily. He denies having any heartburn. 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 He denies having any recent street drug use. He does drink alcohol which she states is occasionally but can be up to 15 drinks on the weekend. He is also a tobacco smoker. He states he woke up with abdominal pain that was crippling him and he couldn't get into the car was so severe. He was transported by EMS to [facility] emergency center for evaluation. The pain was severe and radiating to his back. He had no vomiting or nausea. No diarrhea. He was afebrile with a white count of 21.6 and heart rate of 108. His lipase was elevated at 741 and amylase 132. Urine drug screen was positive for barbiturates. Alcohol level was 148. BUN 11 creatinine 0.59, hemoglobin 13.3. Urinalysis negative. Chest x-ray showed no acute findings. CAT scan of the abdomen and pelvis shows probable perforated duodenal ulcer. Free fluid within the pelvis. Dr. Jhaveri performed exploratory laparotomy with primary repair perforated wound ulcer with Shankar patch and fibrin glue. Patient is seen one day postop. He is complaining of significant pain to the abdomen. He has been afebrile, vital signs stable, pulse ox 95% on room air. Reich catheter in place with dark urine return for which she is receiving 1 L of IV fluids. White count is improved today to 13.4. . 12/11: Patient is laying down in bed he continues to have some sore throat he continues to have an NG tube in place, he denies any abdominal pain, he has no fever or chills, he seems to be tolerating his treatment very well. Objective - Vital Signs Vital signs: Vital Signs Temp 98.9 F 12/11/17 07:35 Pulse 71 12/11/17 07:35 Resp 18 12/11/17 07:35 BP 113/72 12/11/17 07:35 Pulse Ox 96 12/11/17 07:35 Intake & Output 12/10/17 12/11/17 12/11/17 18:59 06:59 18:59 Output Total 900 1520 Balance -900 -1520 Weight 77.111 kg Output: Gastric Drainage 500 Urine 400 1520 Uretheral (Reich) 400 Other: Voiding Method Indwelling Catheter Urinal # Voids 0 1 - Exam Gen: This is a 26-year-old male. He is sitting up in bed and appears to be slightly uncomfortable due to pain HEENT: Head is atraumatic, normocephalic. Pupils equal, round. Sclerae is anicteric. NG tube in place. NECK: Supple. No JVD. No lymphadenopathy. No thyromegaly. LUNGS: Clear to auscultation. No wheezes or rhonchi. No intercostal retractions. HEART: Regular rate and rhythm. No murmur. ABDOMEN: Soft. Bowel sounds are hypoactive. No masses. Generalized tenderness. Dressing placed to the midline with no breakthrough bleeding or drainage. Reich catheter draining dark ruchi urine EXTREMITIES: No pedal edema. No calf tenderness. Dorsalis pedis +2 bilaterally. NEUROLOGICAL: Patient is awake, alert and oriented x3. Cranial nerves 2 through 12 are grossly intact. - Labs CBC & Chem 7: 12/11/17 06:16 12/11/17 06:16 Labs: Abnormal Lab Results - Last 24 Hours (Table) 12/11/17 12/11/17 Range/Units 06:16 06:16 RBC 3.36 L (4.30-5.90) m/uL Hgb 11.4 L (13.0-17.5) gm/dL Hct 33.8 L (39.0-53.0) % MCV 100.5 H (80.0-100.0) fL Sodium 135 L (137-145) mmol/L BUN 8 L (9-20) mg/dL Microbiology - Last 24 Hours (Table) 12/09/17 12:00 Gram Stain - Preliminary Chest Wound Culture - Preliminary Lissett albicans 12/09/17 13:15 Blood Culture - Preliminary Blood No Growth after 24 hours Assessment and Plan Assessment: Assessment and Plan Plan: 1. Perforated duodenal ulcer with peritonitis status post repair. Continue Dilaudid and Toradol for pain control, Zofran for nausea. Patient is on IV fluids at 125 mL per hour, continue current pain management, continue with Hurricaine spray for the sore throat, continue NG tube for now. 2. Sepsis secondary to perforated ulcer and peritonitis present on admission with leukocytosis and tachycardia. There is a consult in place for Dr. Gunn. Patient is currently on Levaquin and received 1 dose of Flagyl in the ER. 3. Tobacco use and dependence. Continue nicotine patch. 4. Recent surgical intervention for her bursitis of the right elbow, stable. 5. History of heroin use, abstinence for almost 4 years. 6. GI prophylaxis. Protonix. 7. DVT prophylaxis. SCDs and ALVARO enciso.
[2017-12-12] MEDS: D5-0.45% NACL WITH KCL 20MEQ/L 1,000 ML IV SCH ×2 (02:57→04:17)
[2017-12-12] MEDS: HYDROmorphone 1 MG/ML 1 ML SYRINGE IVP PRN ×7 (04:17→23:50)
--- NOTE | 2017-12-12 04:53 | PN ---
PROGRESS NOTE DATE OF SERVICE: 12/11/2017. REASON FOR FOLLOWUP: Secondary peritonitis from perforated duodenal ulcer. INTERVAL HISTORY: The patient is afebrile today. He is breathing comfortably. Abdominal pain is currently controlled. Still have NG in. The patient has been passing gas and feeling that he wants to eat. EXAMINATION: Blood pressure is 118/70 with a pulse of 80. Temperature of 98. General description is a young male up in the bed in no distress. HEENT: Shows no pallor or scleral icterus. LUNGS: Unlabored breathing. Clear to auscultation. HEART: S1, S2. Regular rate and rhythm. ABDOMEN: Soft, mildly tender. EXTREMITIES: No edema feet. LABS: The abdominal culture currently showing a yeast. DIAGNOSTIC IMPRESSION AND PLAN: The patient with secondary peritonitis from a perforated ulcer status post operative repair of the same. The patient at this time will continue on cefepime, Flagyl and Diflucan adjusting antibiotics further based on the clinical response and cultures. Continue supportive care. MMODL / IJN: [id number] /
[2017-12-12 06:58] LABS: Basophils % (A) 0 %; Eosinophils # (A) 0.2 k/uL (0-0.7); Eosinophils % (A) 4 %; HCT 37.8 % (39.0-53.0); HGB 12.4 gm/dL (13.0-17.5); Lymphocytes # (A) 0.7 k/uL (1.0-4.8); Lymphocytes % (A) 12 %; MCH 32.5 pg (25.0-35.0); MCHC 32.9 g/dL (31.0-37.0); MCV 98.8 fL (80.0-100.0); Mean Platelet Volume 6.5; Monocytes # (A) 0.3 k/uL (0-1.0); Monocytes % (A) 5 %; Neutrophils # (A) 4.6 k/uL (1.3-7.7); Neutrophils % (A) 78 %; Platelet Count 403 k/uL (150-450); RBC 3.82 m/uL (4.30-5.90); RDW 12.6 % (11.5-15.5); WBC 5.8 k/uL (3.8-10.6)
[2017-12-12 07:07] LABS: Anion Gap 10 mmol/L; Blood Urea Nitrogen 5 mg/dL (9-20); Carbon Dioxide 28 mmol/L (22-30); Chloride 98 mmol/L (98-107); Glucose 103 mg/dL (74-99); Potassium 3.6 mmol/L (3.5-5.1); Sodium 136 mmol/L (137-145)
[2017-12-12] MEDS: metroNIDAZOLE-NS PMX 500 MG in SALINE 1 100ML.BAG IVPB SCH ×3 (07:17→23:51)
[2017-12-12] MEDS: BENZOCAINE/MENTHOL LOZENG 1 EACH LOZENGE MUCOUS MEM PRN (07:25)
--- NOTE | 2017-12-12 08:01 | P.PN ---
<Saranya Lopez M - Last Filed: 12/12/17 07:53> Subjective Progress Note Date: 12/12/17 26-year-old seen this morning. Patient states " not able to tolerate the nasal gastric tube causing irritation" 150 out for the last 8 hours. Patient states he has been up walking in the hallway yesterday. Surgical dressing dry. Pain medication effective for pain control afebrile white count 5.8 down from admitting white count of 21 states passing gas no stool Postop December 09 Exploratory laparotomy with primary repair perforated duodenal ulcer with Shankar patch and fibrin glue. For perforated duodenal ulcer with peritonitis Objective - Vital Signs Vital signs: Vital Signs Temp 98.3 F 12/11/17 20:00 Pulse 63 12/11/17 20:00 Resp 18 12/11/17 20:00 BP 130/71 12/11/17 20:00 Pulse Ox 99 12/11/17 20:00 Intake & Output 12/11/17 12/12/17 12/12/17 18:59 06:59 18:59 Intake Total 1700 Output Total 2425 Balance -2425 1700 Intake: Intake, IV Titration 1700 Amount Cefepime 2 gm In Sodium 50 Chloride 0.9% 50 ml @ 100 mls/hr IVPB Q12HR [facility] Rx #:[id number] D5-0.45% NaCl with KCl 1550 20Meq/l 1,000 ml @ 125 mls/hr IV .Q8H [facility] Rx#: [id number] metroNIDAZOLE-NS PMX 500 100 mg In Saline 1 100ml.bag @ 100 mls/hr IVPB Q8HR [facility] Rx#:[id number] Output: Gastric Drainage 600 Urine 1825 Other: Voiding Method Urinal # Voids 1 3 - Exam Physical exam Pleasant 26-year-old sitting up in bed just received pain medication Lungs adequate air movement on room air no shortness of breath no cough noted on room air sats are 99% Heart S1-S2 audible regular Abdomen surgical tenderness appropriate few hypoactive bowel tones not distended nasogastric tube to suction 150 out for 8 hours surgical dressing dry no reports of nausea no vomiting Extremities Venodyne's on bilateral lower extremities no edema noted - Labs CBC & Chem 7: 12/12/17 06:19 12/12/17 06:19 Labs: Abnormal Lab Results - Last 24 Hours (Table) 12/12/17 12/12/17 Range/Units 06:19 06:19 RBC 3.82 L (4.30-5.90) m/uL Hgb 12.4 L (13.0-17.5) gm/dL Hct 37.8 L (39.0-53.0) % Lymphocytes # 0.7 L (1.0-4.8) k/uL Sodium 136 L (137-145) mmol/L BUN 5 L (9-20) mg/dL Creatinine 0.62 L (0.66-1.25) mg/dL Glucose 103 H (74-99) mg/dL Microbiology - Last 24 Hours (Table) 12/09/17 17:00 Anaerobic Culture - Preliminary Peritoneal Fluid 12/09/17 12:00 Gram Stain - Final Chest Wound Culture - Final Lissett albicans 12/09/17 13:15 Blood Culture - Preliminary Blood No Growth after 48 hours Assessment and Plan Assessment: Impression Present on admission acute onset abdominal pain suspect due to Perforated duodenal ulcer with peritonitis Present on admission leukocytosis suspect due to peritonitis History of frequent use of NSAID daily History of a recent right elbow bursitis with surgery on Naprosyn Pneumoperitoneum present on admission Status post December 09 Exploratory laparotomy with primary repair perforated duodenal ulcer with Shankar patch and fibrin glue for perforated duodenal ulcer with peritonitis Active daily use nicotine Abdominal wound culture yeast noted Plan Local wound care at [facility] as ordered Continue postop surgical care Pain control IV antibiotic Flagyl, Diflucan cefepime as ordered Nicotine patch as ordered reinforce smoking sensation Continue protonix 40 IV twice a day DVT and GI prophylaxis Increase activity as tolerated Defer to medicine to address medical issues The above impression and plan of care have been discussed and directed by signing physician. Saranya Lopez nurse practitioner acting as scribe for signing physician. <Dami Jhaveri - Last Filed: 12/12/17 10:54> Objective - Vital Signs Vital signs: Vital Signs Temp 98.8 F 12/12/17 07:20 Pulse 69 12/12/17 07:20 Resp 16 12/12/17 07:20 BP 115/70 12/12/17 07:20 Pulse Ox 94 L 12/12/17 07:20 Intake & Output 12/11/17 12/12/17 12/12/17 18:59 06:59 18:59 Intake Total 1700 Output Total 2425 Balance -2425 1700 Intake: Intake, IV Titration 1700 Amount Cefepime 2 gm In Sodium 50 Chloride 0.9% 50 ml @ 100 mls/hr IVPB Q12HR [facility] Rx #:[id number] D5-0.45% NaCl with KCl 1550 20Meq/l 1,000 ml @ 125 mls/hr IV .Q8H [facility] Rx#: [id number] metroNIDAZOLE-NS PMX 500 100 mg In Saline 1 100ml.bag @ 100 mls/hr IVPB Q8HR [facility] Rx#:[id number] Output: Gastric Drainage 600 Urine 1825 Other: Voiding Method Urinal # Voids 1 3 - Labs CBC & Chem 7: 12/12/17 06:19 12/12/17 06:19 Labs: Abnormal Lab Results - Last 24 Hours (Table) 12/12/17 12/12/17 Range/Units 06:19 06:19 RBC 3.82 L (4.30-5.90) m/uL Hgb 12.4 L (13.0-17.5) gm/dL Hct 37.8 L (39.0-53.0) % Lymphocytes # 0.7 L (1.0-4.8) k/uL Sodium 136 L (137-145) mmol/L BUN 5 L (9-20) mg/dL Creatinine 0.62 L (0.66-1.25) mg/dL Glucose 103 H (74-99) mg/dL Microbiology - Last 24 Hours (Table) 12/09/17 17:00 Anaerobic Culture - Preliminary Peritoneal Fluid 12/09/17 12:00 Gram Stain - Final Chest Wound Culture - Final Lissett albicans 12/09/17 13:15 Blood Culture - Preliminary Blood No Growth after 48 hours Assessment and Plan Assessment: As above. Patient doing better at this time. NG output is decreased. We'll remove the nasogastric tube at this time. Stay nothing by mouth except for ice chips. Upper GI ordered for tomorrow. Continue antibiotics and antiacid therapy. (1) Pneumoperitoneum Current Visit: Yes Status: Acute Code(s): K66.8 - OTHER SPECIFIED DISORDERS OF PERITONEUM SNOMED Code(s): 78256433
[2017-12-12] MEDS: CEFEPIME 2 GM in SODIUM CHLORIDE 0.9% 50 ML IVPB SCH ×2 (09:42→20:25)
[2017-12-12] MEDS: PANTOPRAZOLE 40 MG/10 ML VIAL IVP SCH ×2 (09:43→20:26)
[2017-12-12] MEDS: HEPARIN SODIUM,PORCINE 5,000 UNIT/ML 1 ML VIAL SQ SCH ×3 (09:43→23:51)
[2017-12-12] MEDS: FLUCONAZOLE IN NACL,ISO-OSM 200 MG in SALINE 1 100ML.BAG IVPB SCH (10:25)
[2017-12-12] MEDS: NICOTINE 14MG/24HR PATCH TRANSDERM SCH (10:49)
--- NOTE | 2017-12-12 14:20 | P.PN ---
Subjective Progress Note Date: 12/12/17 This is a 26-year-old male patient of Dr. Brush with past medical history of right elbow bursitis with recent admission at [facility] 2 weeks ago for 5 days status post drainage. He believes the bursitis was secondary to using a sledgehammer for 4 hours. He has been taking naproxen 500 mg twice daily. He denies having any heartburn. 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 He denies having any recent street drug use. He does drink alcohol which she states is occasionally but can be up to 15 drinks on the weekend. He is also a tobacco smoker. He states he woke up with abdominal pain that was crippling him and he couldn't get into the car was so severe. He was transported by EMS to [facility] emergency center for evaluation. The pain was severe and radiating to his back. He had no vomiting or nausea. No diarrhea. He was afebrile with a white count of 21.6 and heart rate of 108. His lipase was elevated at 741 and amylase 132. Urine drug screen was positive for barbiturates. Alcohol level was 148. BUN 11 creatinine 0.59, hemoglobin 13.3. Urinalysis negative. Chest x-ray showed no acute findings. CAT scan of the abdomen and pelvis shows probable perforated duodenal ulcer. Free fluid within the pelvis. Dr. Jhaveri performed exploratory laparotomy with primary repair perforated wound ulcer with Shankar patch and fibrin glue. Patient is seen one day postop. He is complaining of significant pain to the abdomen. He has been afebrile, vital signs stable, pulse ox 95% on room air. Reich catheter in place with dark urine return for which she is receiving 1 L of IV fluids. White count is improved today to 13.4. . 12/11: Patient is laying down in bed he continues to have some sore throat he continues to have an NG tube in place, he denies any abdominal pain, he has no fever or chills, he seems to be tolerating his treatment very well. 12/12: NG tube was removed, patient is currently on nothing per mouth yet, he denies any chest pain, he is less sore throat, he has no abdominal pain, he is moving around very well, we'll decrease his IV fluid to 75 mL an hour. Objective - Vital Signs Vital signs: Vital Signs Temp 98.8 F 12/12/17 07:20 Pulse 69 12/12/17 07:20 Resp 16 12/12/17 07:20 BP 115/70 12/12/17 07:20 Pulse Ox 94 L 12/12/17 07:20 Intake & Output 12/11/17 12/12/17 12/12/17 18:59 06:59 18:59 Intake Total 1700 Output Total 2425 Balance -2425 1700 Intake: Intake, IV Titration 1700 Amount Cefepime 2 gm In Sodium 50 Chloride 0.9% 50 ml @ 100 mls/hr IVPB Q12HR [facility] Rx #:[id number] D5-0.45% NaCl with KCl 1550 20Meq/l 1,000 ml @ 125 mls/hr IV .Q8H [facility] Rx#: [id number] metroNIDAZOLE-NS PMX 500 100 mg In Saline 1 100ml.bag @ 100 mls/hr IVPB Q8HR [facility] Rx#:[id number] Output: Gastric Drainage 600 Urine 1825 Other: Voiding Method Urinal # Voids 1 3 - Exam Gen: This is a 26-year-old male. He is sitting up in bed and appears to be slightly uncomfortable due to pain HEENT: Head is atraumatic, normocephalic. Pupils equal, round. Sclerae is anicteric. NG tube in place. NECK: Supple. No JVD. No lymphadenopathy. No thyromegaly. LUNGS: Clear to auscultation. No wheezes or rhonchi. No intercostal retractions. HEART: Regular rate and rhythm. No murmur. ABDOMEN: Soft. Bowel sounds are hypoactive. No masses. Generalized tenderness. Dressing placed to the midline with no breakthrough bleeding or drainage. Reich catheter draining dark ruchi urine EXTREMITIES: No pedal edema. No calf tenderness. Dorsalis pedis +2 bilaterally. NEUROLOGICAL: Patient is awake, alert and oriented x3. Cranial nerves 2 through 12 are grossly intact. - Labs CBC & Chem 7: 12/12/17 06:19 12/12/17 06:19 Labs: Abnormal Lab Results - Last 24 Hours (Table) 12/12/17 12/12/17 Range/Units 06:19 06:19 RBC 3.82 L (4.30-5.90) m/uL Hgb 12.4 L (13.0-17.5) gm/dL Hct 37.8 L (39.0-53.0) % Lymphocytes # 0.7 L (1.0-4.8) k/uL Sodium 136 L (137-145) mmol/L BUN 5 L (9-20) mg/dL Creatinine 0.62 L (0.66-1.25) mg/dL Glucose 103 H (74-99) mg/dL Microbiology - Last 24 Hours (Table) 12/09/17 17:00 Anaerobic Culture - Preliminary Peritoneal Fluid 12/09/17 12:00 Gram Stain - Final Chest Wound Culture - Final Lissett albicans 12/09/17 13:15 Blood Culture - Preliminary Blood No Growth after 48 hours Assessment and Plan Assessment: Assessment and Plan Plan: 1. Perforated duodenal ulcer with peritonitis status post repair. Continue Dilaudid and Toradol for pain control, Zofran for nausea. Discontinue IV fluid , NG tube was removed, incentive spirometer, diet is per surgery. 2. Sepsis secondary to perforated ulcer and peritonitis present on admission with leukocytosis and tachycardia. There is a consult in place for Dr. Gunn. Patient is currently on Levaquin and received 1 dose of Flagyl in the ER. 3. Tobacco use and dependence. Continue nicotine patch. 4. Recent surgical intervention for her bursitis of the right elbow, stable. 5. History of heroin use, abstinence for almost 4 years. 6. GI prophylaxis. Protonix. 7. DVT prophylaxis. SCDs and ALVARO enciso.
[2017-12-12] MEDS ORDERED: DEXTROSE 5%-0.45% NACL 1,000 ML IV SCH (14:30)
[2017-12-12] MEDS: SODIUM CHLORIDE 0.9% 1,000 ML IV SCH (15:43)
[2017-12-13] MEDS: HYDROmorphone 1 MG/ML 1 ML SYRINGE IVP PRN ×3 (02:07→08:21)
[2017-12-13] MEDS: SODIUM CHLORIDE 0.9% 1,000 ML IV SCH ×2 (05:17→19:48)
--- NOTE | 2017-12-13 05:54 | PN ---
PROGRESS NOTE DATE OF SERVICE: 12/12/2017 REASON FOR FOLLOWUP: Secondary peritonitis from perforated peptic ulcer disease. INTERVAL HISTORY: The patient is afebrile. He has been breathing comfortably. Denies significant chest pain or any cough. NG has been discontinued. Abdominal pain is currently controlled with pain medication. No nausea, no vomiting. PHYSICAL EXAMINATION: On examination, blood pressure 113/70 with a pulse of 73, temperature 98.1. He is 90% on room air. General description is a middle-aged male up in the bed in no distress. RESPIRATORY SYSTEM: Unlabored breathing, clear to auscultation anteriorly. HEART: S1, S2. Regular rate and rhythm. ABDOMEN: Soft, mildly tender. EXTREMITIES: No edema of the feet. LABS: Hemoglobin is 12.4, white count of 5.8, BUN of 5 creatinine 0.62. Abdominal culture with Lissett albicans. DIAGNOSTIC IMPRESSION AND PLAN: Patient with secondary peritonitis from perforated peptic ulcer disease, status post operative repair of the same. Plan at this time is to given patient cefepime, Diflucan and Flagyl. Hopefully finish therapy with oral antibiotic once his oral intake has improved and if no resistant organism on the culture. Continue with supportive care. MMODL / IJN: [id number] /
[2017-12-13 06:59] LABS: Basophils % (A) 1 %; Eosinophils # (A) 0.2 k/uL (0-0.7); Eosinophils % (A) 4 %; HCT 38.4 % (39.0-53.0); HGB 12.8 gm/dL (13.0-17.5); Lymphocytes % (A) 20 %; MCH 33.3 pg (25.0-35.0); MCHC 33.3 g/dL (31.0-37.0); MCV 100.1 fL (80.0-100.0); Mean Platelet Volume 6.6; Monocytes # (A) 0.4 k/uL (0-1.0); Monocytes % (A) 8 %; Neutrophils # (A) 3.5 k/uL (1.3-7.7); Neutrophils % (A) 66 %; Platelet Count 423 k/uL (150-450); RBC 3.84 m/uL (4.30-5.90); RDW 12.8 % (11.5-15.5); WBC 5.3 k/uL (3.8-10.6)
[2017-12-13 07:13] LABS: Anion Gap 6 mmol/L; Blood Urea Nitrogen 7 mg/dL (9-20); Carbon Dioxide 31 mmol/L (22-30); Chloride 98 mmol/L (98-107); Glucose 96 mg/dL (74-99); Sodium 135 mmol/L (137-145)
[2017-12-13] MEDS: NICOTINE 14MG/24HR PATCH TRANSDERM SCH (08:24)
[2017-12-13] MEDS: PANTOPRAZOLE 40 MG/10 ML VIAL IVP SCH ×2 (08:25→19:49)
[2017-12-13] MEDS: HEPARIN SODIUM,PORCINE 5,000 UNIT/ML 1 ML VIAL SQ SCH ×3 (08:26→23:44)
[2017-12-13] MEDS: metroNIDAZOLE-NS PMX 500 MG in SALINE 1 100ML.BAG IVPB SCH ×3 (10:22→23:46)
--- NOTE | 2017-12-13 10:36 | FL ---
EXAMINATION TYPE: FL UGI DATE OF EXAM: 12/13/2017 COMPARISON: None HISTORY: Duodenal cyst repair TECHNIQUE: A single contrast UGI study is performed. Isovue-370 was utilized. 2.32 minutes of fluoro scopy time was provided. 26 images were performed. FINDINGS: Contrast passes from the distal esophagus through the stomach with no hesitancy. No extrava sation of contrast is evident. Attention was paid to the duodenal track. Some duodenal fold hypertrophy is present within the first and second portions. Contrast passes through without significant hesitancy. Caliber appears normal. N o filling defects are evident. No extravasation of contrast was evident. Additional overhead radiogra phs as well as upright and supine imaging was performed with fluoroscopy with real-time observation. No free air is noted during this examination. Overhead radiographs were obtained which are unremarkable. IMPRESSIONS: 1. Post surgical evaluation of the duodenum is unremarkable without extravasation of contrast. Some m ild duodenitis with fold hypertrophy could be considered.
[2017-12-13] MEDS: CEFEPIME 2 GM in SODIUM CHLORIDE 0.9% 50 ML IVPB SCH ×2 (11:39→21:48)
[2017-12-13] MEDS: HYDROcodone/APAP 7.5-325MG 1 EACH TAB PO PRN ×4 (11:44→23:44)
--- NOTE | 2017-12-13 11:53 | P.PN ---
Subjective Progress Note Date: 12/13/17 Principal diagnosis: Status post oversew perforated ulcer The patient is status post oversew of a perforated ulcer. He is doing well. He had upper GI today which showed no extravasation. His NG has been removed. He is taking some clear liquids now. No nausea or vomiting. Passing some flatus. Objective - Vital Signs Vital signs: Vital Signs Temp 98 F 12/13/17 07:00 Pulse 60 12/13/17 07:00 Resp 12 12/13/17 07:00 BP 118/74 12/13/17 07:00 Pulse Ox 98 12/13/17 07:00 Intake & Output 12/12/17 12/13/17 12/13/17 18:59 06:59 18:59 Intake Total 0 900 30 Balance 0 900 30 Weight 77.111 kg Intake: Intake, IV Titration 900 Amount Cefepime 2 gm In Sodium 50 Chloride 0.9% 50 ml @ 100 mls/hr IVPB Q12HR [facility] Rx #:[id number] Sodium Chloride 0.9% 1, 750 000 ml @ 75 mls/hr IV . [id number] [facility] Rx#:[id number] metroNIDAZOLE-NS PMX 500 100 mg In Saline 1 100ml.bag @ 100 mls/hr IVPB Q8HR [facility] Rx#:[id number] Oral 0 30 Other: # Voids 1 1 - Constitutional General appearance: Present: cooperative, no acute distress - Respiratory Respiratory: bilateral: CTA - Cardiovascular Rhythm: regular - Gastrointestinal General gastrointestinal: Present: normal bowel sounds, soft Localized gastrointestinal: surgical scar: diffuse (Incision is healing without cellulitis) - Labs CBC & Chem 7: 12/13/17 06:19 12/13/17 06:19 Labs: Abnormal Lab Results - Last 24 Hours (Table) 12/13/17 12/13/17 Range/Units 06:19 06:19 RBC 3.84 L (4.30-5.90) m/uL Hgb 12.8 L (13.0-17.5) gm/dL Hct 38.4 L (39.0-53.0) % MCV 100.1 H (80.0-100.0) fL Sodium 135 L (137-145) mmol/L Carbon Dioxide 31 H (22-30) mmol/L BUN 7 L (9-20) mg/dL Microbiology - Last 24 Hours (Table) 12/09/17 13:15 Blood Culture - Preliminary Blood No Growth after 72 hours Assessment and Plan (1) Perforated duodenal ulcer Current Visit: Yes Status: Acute Code(s): K26.5 - CHRONIC OR UNSPECIFIED DUODENAL ULCER WITH PERFORATION SNOMED Code(s): 98290797 (2) Peritonitis Current Visit: Yes Status: Acute Code(s): K65.9 - PERITONITIS, UNSPECIFIED SNOMED Code(s): 38054166 Plan: He's been in started on clear liquid diet. We'll advance him slowly as tolerated. Fully ready for discharge in the next day or 2. Await final antibiotic and antifungal recommendations per infectious disease. Progressing well.
[2017-12-13] MEDS: FLUCONAZOLE IN NACL,ISO-OSM 200 MG in SALINE 1 100ML.BAG IVPB SCH (14:47)
--- NOTE | 2017-12-13 15:10 | P.PN ---
Subjective Progress Note Date: 12/13/17 This is a 26-year-old male patient of Dr. Brush with past medical history of right elbow bursitis with recent admission at [facility] 2 weeks ago for 5 days status post drainage. He believes the bursitis was secondary to using a sledgehammer for 4 hours. He has been taking naproxen 500 mg twice daily. He denies having any heartburn. 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 He denies having any recent street drug use. He does drink alcohol which she states is occasionally but can be up to 15 drinks on the weekend. He is also a tobacco smoker. He states he woke up with abdominal pain that was crippling him and he couldn't get into the car was so severe. He was transported by EMS to [facility] emergency center for evaluation. The pain was severe and radiating to his back. He had no vomiting or nausea. No diarrhea. He was afebrile with a white count of 21.6 and heart rate of 108. His lipase was elevated at 741 and amylase 132. Urine drug screen was positive for barbiturates. Alcohol level was 148. BUN 11 creatinine 0.59, hemoglobin 13.3. Urinalysis negative. Chest x-ray showed no acute findings. CAT scan of the abdomen and pelvis shows probable perforated duodenal ulcer. Free fluid within the pelvis. Dr. Jhaveri performed exploratory laparotomy with primary repair perforated wound ulcer with Shankar patch and fibrin glue. Patient is seen one day postop. He is complaining of significant pain to the abdomen. He has been afebrile, vital signs stable, pulse ox 95% on room air. Reich catheter in place with dark urine return for which she is receiving 1 L of IV fluids. White count is improved today to 13.4. . 12/11: Patient is laying down in bed he continues to have some sore throat he continues to have an NG tube in place, he denies any abdominal pain, he has no fever or chills, he seems to be tolerating his treatment very well. 12/12: NG tube was removed, patient is currently on nothing per mouth yet, he denies any chest pain, he is less sore throat, he has no abdominal pain, he is moving around very well, we'll decrease his IV fluid to 75 mL an hour. 12/13: Patient is tolerating a full liquid diet to be advanced for low fiber. He has been afebrile, white count is normalized. Wound culture was finalized with Lissett. Blood cultures no growth after 72 hours. Upper GI shows postsurgical evaluation of the duodenum is unremarkable without extravasation of contrast. Some mild to 190s with full hypertrophy could be considered. Objective - Vital Signs Vital signs: Vital Signs Temp 98 F 12/13/17 07:00 Pulse 60 12/13/17 07:00 Resp 12 12/13/17 07:00 BP 118/74 12/13/17 07:00 Pulse Ox 98 12/13/17 07:00 Intake & Output 12/12/17 12/13/17 12/13/17 18:59 06:59 18:59 Intake Total 0 900 30 Balance 0 900 30 Weight 77.111 kg Intake: Intake, IV Titration 900 Amount Cefepime 2 gm In Sodium 50 Chloride 0.9% 50 ml @ 100 mls/hr IVPB Q12HR [facility] Rx #:[id number] Sodium Chloride 0.9% 1, 750 000 ml @ 75 mls/hr IV . [id number] [facility] Rx#:[id number] metroNIDAZOLE-NS PMX 500 100 mg In Saline 1 100ml.bag @ 100 mls/hr IVPB Q8HR [facility] Rx#:[id number] Oral 0 30 Other: # Voids 1 1 - Exam Gen: This is a 26-year-old male. He is sitting up in bed and appears to be slightly uncomfortable due to pain HEENT: Head is atraumatic, normocephalic. Pupils equal, round. Sclerae is anicteric. NG tube in place. NECK: Supple. No JVD. No lymphadenopathy. No thyromegaly. LUNGS: Clear to auscultation. No wheezes or rhonchi. No intercostal retractions. HEART: Regular rate and rhythm. No murmur. ABDOMEN: Soft. Bowel sounds are hypoactive. No masses. Generalized tenderness. Dressing placed to the midline with no breakthrough bleeding or drainage. Reich catheter draining dark ruchi urine EXTREMITIES: No pedal edema. No calf tenderness. Dorsalis pedis +2 bilaterally. NEUROLOGICAL: Patient is awake, alert and oriented x3. Cranial nerves 2 through 12 are grossly intact. - Labs CBC & Chem 7: 12/13/17 06:19 18 06:19 Labs: Abnormal Lab Results - Last 24 Hours (Table) 12/13/17 12/13/17 Range/Units 06:19 06:19 RBC 3.84 L (4.30-5.90) m/uL Hgb 12.8 L (13.0-17.5) gm/dL Hct 38.4 L (39.0-53.0) % MCV 100.1 H (80.0-100.0) fL Sodium 135 L (137-145) mmol/L Carbon Dioxide 31 H (22-30) mmol/L BUN 7 L (9-20) mg/dL Microbiology - Last 24 Hours (Table) 12/09/17 13:15 Blood Culture - Preliminary Blood No Growth after 72 hours Assessment and Plan Plan: 1. Perforated duodenal ulcer with peritonitis status post repair. Continue Dilaudid and Toradol for pain control, Zofran for nausea. Patient is on IV fluids decreased to 75 mL per hour. Diet is being advanced. 2. Sepsis secondary to perforated ulcer and peritonitis present on admission with leukocytosis and tachycardia. Consult in place for Dr. Peralta. Patient is currently on Levaquin and received 1 dose of Flagyl in the ER. Patient is currently on cefepime and Flagyl. 3. Tobacco use and dependence. Continue nicotine patch. 4. Recent surgical intervention for her bursitis of the right elbow, stable. 5. History of heroin use, abstinence for almost 4 years. 6. GI prophylaxis. Protonix. 7. DVT prophylaxis. SCDs and ALVARO hose. Discharge plan: Return home Impression and plan of care have been directed as dictated by the signing physician. Genoveva Parker nurse practitioner acting as scribe for signing physician.
[2017-12-13] MEDS: diphenhydrAMINE 50 MG/ML 1 ML VIAL IVP PRN (19:51)
[2017-12-14 03:06] VITALS: TEMP 98.2
[2017-12-14] MEDS: HYDROcodone/APAP 7.5-325MG 1 EACH TAB PO PRN ×3 (03:56→12:35)
[2017-12-14] MEDS: SODIUM CHLORIDE 0.9% 1,000 ML IV SCH (06:11)
--- NOTE | 2017-12-14 07:57 | PN ---
PROGRESS NOTE DATE OF SERVICE: 12/13/2017. REASON FOR FOLLOWUP: Secondary peritonitis from perforated duodenal ulcer. INTERVAL HISTORY: The patient is currently afebrile. He is breathing comfortably. Denies having any chest pain, shortness of breath or cough. Abdominal pain is currently improved. No nausea, vomiting. No diarrhea. EXAMINATION: Blood pressure 111/74 with a pulse of 71. Temperature 98.7. He is 97% on room air. General description is a middle-aged male lying in bed in no distress. RESPIRATORY SYSTEM: Unlabored breathing. Clear to auscultation anteriorly. HEART: S1, S2. Regular rate and rhythm. ABDOMEN: Soft. EXTREMITIES: No edema feet. LABS: Hemoglobin is 12.8, white count 5.3 with a BUN of 7, creatinine 0.66. Abdominal culture with Lissett albicans. DIAGNOSTIC IMPRESSION AND PLAN: Patient with secondary peritonitis from a perforated peptic ulcer disease status post operative repair. The patient is currently on cefepime, Flagyl and Diflucan which will continue. If the patient continues to improve hopefully finish therapy with oral antibiotics. Continue supportive care. MMODL / IJN: [id number] /
[2017-12-14] MEDS: HEPARIN SODIUM,PORCINE 5,000 UNIT/ML 1 ML VIAL SQ SCH (08:24)
[2017-12-14] MEDS: metroNIDAZOLE-NS PMX 500 MG in SALINE 1 100ML.BAG IVPB SCH (08:24)
[2017-12-14 08:38] VITALS: BP 118/71; PULSE 97; RESP 16
[2017-12-14] MEDS: NICOTINE 14MG/24HR PATCH TRANSDERM SCH (09:26)
[2017-12-14] MEDS: CEFEPIME 2 GM in SODIUM CHLORIDE 0.9% 50 ML IVPB SCH (10:28)
[2017-12-14] MEDS: PANTOPRAZOLE 40 MG/10 ML VIAL IVP SCH (10:28)
[2017-12-14] MEDS: FLUCONAZOLE IN NACL,ISO-OSM 200 MG in SALINE 1 100ML.BAG IVPB SCH (11:36)
--- NOTE | 2017-12-14 12:54 | P.PN ---
Subjective Progress Note Date: 12/14/17 This is a 26-year-old male patient of Dr. Brush with past medical history of right elbow bursitis with recent admission at [facility] 2 weeks ago for 5 days status post drainage. He believes the bursitis was secondary to using a sledgehammer for 4 hours. He has been taking naproxen 500 mg twice daily. He denies having any heartburn. 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 He denies having any recent street drug use. He does drink alcohol which she states is occasionally but can be up to 15 drinks on the weekend. He is also a tobacco smoker. He states he woke up with abdominal pain that was crippling him and he couldn't get into the car was so severe. He was transported by EMS to [facility] emergency center for evaluation. The pain was severe and radiating to his back. He had no vomiting or nausea. No diarrhea. He was afebrile with a white count of 21.6 and heart rate of 108. His lipase was elevated at 741 and amylase 132. Urine drug screen was positive for barbiturates. Alcohol level was 148. BUN 11 creatinine 0.59, hemoglobin 13.3. Urinalysis negative. Chest x-ray showed no acute findings. CAT scan of the abdomen and pelvis shows probable perforated duodenal ulcer. Free fluid within the pelvis. Dr. Jhaveri performed exploratory laparotomy with primary repair perforated wound ulcer with Shankar patch and fibrin glue. Patient is seen one day postop. He is complaining of significant pain to the abdomen. He has been afebrile, vital signs stable, pulse ox 95% on room air. Reich catheter in place with dark urine return for which she is receiving 1 L of IV fluids. White count is improved today to 13.4. . 12/11: Patient is laying down in bed he continues to have some sore throat he continues to have an NG tube in place, he denies any abdominal pain, he has no fever or chills, he seems to be tolerating his treatment very well. 12/12: NG tube was removed, patient is currently on nothing per mouth yet, he denies any chest pain, he is less sore throat, he has no abdominal pain, he is moving around very well, we'll decrease his IV fluid to 75 mL an hour. 12/13: Patient is tolerating a full liquid diet to be advanced for low fiber. He has been afebrile, white count is normalized. Wound culture was finalized with Lissett. Blood cultures no growth after 72 hours. Upper GI shows postsurgical evaluation of the duodenum is unremarkable without extravasation of contrast. Some mild to 190s with full hypertrophy could be considered. 12/14: Patient has been ambulating well. Diet is tolerated without nausea or vomiting. He is scheduled for discharge home today. We will discontinue Naprosyn at home. Objective - Vital Signs Vital signs: Vital Signs Temp 98.2 F 12/14/17 08:37 Pulse 97 12/14/17 08:37 Resp 16 12/14/17 08:37 BP 118/71 12/14/17 08:37 Pulse Ox 97 12/14/17 08:37 Intake & Output 12/13/17 12/14/17 12/14/17 18:59 06:59 18:59 Intake Total 530 2610 300 Balance 530 2610 300 Weight 77.111 kg Intake: Intake, IV Titration 450 Amount Cefepime 2 gm In Sodium 100 Chloride 0.9% 50 ml @ 100 mls/hr IVPB Q12HR [facility] Rx #:[id number] Sodium Chloride 0.9% 1, 150 000 ml @ 75 mls/hr IV . [id number] [facility] Rx#:[id number] metroNIDAZOLE-NS PMX 500 200 mg In Saline 1 100ml.bag @ 100 mls/hr IVPB Q8HR [facility] Rx#:[id number] Oral 530 2160 300 Other: Voiding Method Toilet # Voids 1 3 # Bowel Movements 1 - Exam Gen: This is a 26-year-old male. He is ambulating in the hallways without any difficulty. HEENT: Head is atraumatic, normocephalic. Pupils equal, round. Sclerae is anicteric. NECK: Supple. No JVD. No lymphadenopathy. No thyromegaly. LUNGS: Clear to auscultation. No wheezes or rhonchi. No intercostal retractions. HEART: Regular rate and rhythm. No murmur. ABDOMEN: Soft. Bowel sounds are hypoactive. No masses. No tenderness. Dressing placed to the midline with no breakthrough bleeding or drainage. EXTREMITIES: No pedal edema. No calf tenderness. Dorsalis pedis +2 bilaterally. NEUROLOGICAL: Patient is awake, alert and oriented x3. Cranial nerves 2 through 12 are grossly intact. - Labs CBC & Chem 7: 12/13/17 06:19 12/13/17 06:19 Labs: Microbiology - Last 24 Hours (Table) 12/09/17 17:00 Anaerobic Culture - Final Peritoneal Fluid 12/09/17 13:15 Blood Culture - Preliminary Blood No Growth after 96 hours Assessment and Plan Plan: 1. Perforated duodenal ulcer with peritonitis status post repair. Continue Dilaudid and Toradol for pain control, Zofran for nausea. IV fluids discontinued. Diet is being advanced. Discontinue Naprosyn for home. 2. Sepsis secondary to perforated ulcer and peritonitis present on admission with leukocytosis and tachycardia. Consult in place for Dr. Peralta. Patient is currently on Levaquin and received 1 dose of Flagyl in the ER. Patient is currently on cefepime and Flagyl. 3. Tobacco use and dependence. Continue nicotine patch. 4. Recent surgical intervention for her bursitis of the right elbow, stable. 5. History of heroin use, abstinence for almost 4 years. 6. GI prophylaxis. Protonix. 7. DVT prophylaxis. SCDs and ALVARO hose. Discharge plan: Return home Impression and plan of care have been directed as dictated by the signing physician. Genoveva Parker nurse practitioner acting as scribe for signing physician.
--- NOTE | 2017-12-14 16:20 | PN ---
PROGRESS NOTE DATE OF SERVICE: 12/14/2017. REASON FOR FOLLOWUP: Secondary peritonitis from perforated peptic ulcer disease. INTERVAL HISTORY: The patient is afebrile. He is breathing comfortably. The patient denies having any chest pain or shortness of breath or cough. Abdominal pain is currently controlled. He is tolerating diet. No nausea, vomiting. No diarrhea. EXAMINATION: Blood pressure is 119/71 with a pulse of 97, temperature 98.2. He is 97% on room air. General description is a young male up in the bed in no distress. Respiratory system: Unlabored breathing, clear to auscultation anteriorly. Heart S1, S2. Regular rate and rhythm. Abdomen soft, no tenderness. Extremities: No edema of the feet. LABS: Hemoglobin 12.2, white count 5.3 with a BUN of 7, creatinine 0.66. DIAGNOSTIC IMPRESSION AND PLAN: Patient with secondary peritonitis from perforated duodenal ulcer status post operative repair of the same. The patient abdominal cultures shows only Lissett. The patient will finish therapy with oral Ceftin, Flagyl and Diflucan. Prescription has been sent to the pharmacy with close outpatient followup. MMODL / IJN: [id number] /
--- NOTE | 2017-12-14 18:23 | P.DS ---
Providers Date of admission: 12/09/17 13:08 Expected date of discharge: 12/14/17 Attending physician: Alexandrea Acosta Consults: 12/09/17 17:50 Consult Physician Routine Consulting Provider: Lukasz Avila Consult Reason/Comments: Medical management Do you want consulting provider notified?: Yes Consult Physician Routine Consulting Provider: Myrtle Peralta Consult Reason/Comments: Perforated ulcer Do you want consulting provider notified?: Yes Primary care physician: Cristofer Chowdhury Kut - Discharge Diagnosis(es) (1) Perforated duodenal ulcer Status: Acute (2) Peritonitis Status: Acute Hospital Course: The patient presented to the emergency department with severe sudden onset of pain. Workup was suggestive of a perforated ulcer. He was taken to the OR where he underwent a laparotomy with oversew of ulcer. He is given empiric antibiotics. Cultures were obtained which showed Lissett. He was seen by infectious diseases. The NG was In until Wednesday when a upper GI series was performed. This showed no extravasation. And NG tube was subsequently removed and he was started on a diet. By 12/14 he was tolerating a diet, having mild pain, felt to be stable for discharge Pertinent Studies: CT, lab, upper GI series Procedures: Oversew of perforated ulcer Patient Condition at Discharge: Good Plan - Discharge Summary Discharge Rx Participant: No New Discharge Prescriptions: New Hydrocodone/Acetaminophen [Storden 5-325] 1 - 2 each PO Q4HR PRN #20 tab PRN Reason: pain Omeprazole [PriLOSEC] 20 mg PO AC-BID #90 cap Cefuroxime Axetil [Ceftin] 500 mg PO BID #20 tab Fluconazole [Diflucan] 200 mg PO DAILY #10 tab metroNIDAZOLE [Flagyl] 500 mg PO Q8HR #30 tab Discontinued Naproxen [Naprosyn] 500 mg PO Q12HR PRN #30 tab PRN Reason: Pain Discharge Medication List Hydrocodone/Acetaminophen [Storden 5-325] 1 - 2 each PO Q4HR PRN #20 tab 12/12/17 [Rx] Omeprazole [PriLOSEC] 20 mg PO AC-BID #90 cap 12/12/17 [Rx] Cefuroxime Axetil [Ceftin] 500 mg PO BID #20 tab 12/14/17 [Rx] Fluconazole [Diflucan] 200 mg PO DAILY #10 tab 12/14/17 [Rx] metroNIDAZOLE [Flagyl] 500 mg PO Q8HR #30 tab 12/14/17 [Rx] Follow up Appointment(s)/Referral(s): Dami Jhaveri MD [Medical Doctor] - 12/22/17 3:00 pm Cristofer Brush MD [Primary Care Provider] - 12/23/17 8:45 am Myrtle Peralta MD [STAFF PHYSICIAN] - 1 Week Patient Instructions/Handouts: Exploratory Laparotomy (DC) Activity/Diet/Wound Care/Special Instructions: You may shower. No tub bath's or swimming. No lifting more than 10 pounds. Call if fever, chills, nausea, vomiting, increasing abdominal pain or wound concerns. No carbonated drinks. No NSAID's, such as motrin, naprosyn Discharge Disposition: HOME SELF-CARE
== END 2017-12-14 14:50 | disposition home or self-care (01) | DRG 853 ==
LOC: EC 10:43 → SUPCPDRO 10:43 → 3SUR 13:08
PROVIDERS: ADMIT Surgery; ATTEND Surgery
PROC: 0DU907Z Supplement Duodenum with Autologous Tissue Substitute, Open Approach (ICD-10-PCS; principal; 2017-12-09 13:15)
DX: A41.9 Sepsis, unspecified organism (principal); K26.5 Chronic or unspecified duodenal ulcer with perforation; K65.9 Peritonitis, unspecified; F17.210 Nicotine dependence, cigarettes, uncomplicated; K66.8 Other specified disorders of peritoneum; J02.9 Acute pharyngitis, unspecified; R73.9 Hyperglycemia, unspecified; Z88.0 Allergy status to penicillin
CPT/HCPCS: 36415; 71045; 74177; 74240; 80048; 80053; 80306; 80320; 81001; 82150; 83690; 85025; 85610; 86850; 86900; 86901; 87040; 87070; 87075; 87205; 93005; 96361; 96365; 96375; 99285